=== PATIENT | female | born 1965 | race Caucasian/White ===

== ENCOUNTER → 2017-05-12 | Outpatient (CLI) | payer OTHER | LOC: FIMAGING 09:06 | PROVIDERS: ATTEND Internal Medicine Hematology & Oncology | DX: Z12.31 Encounter for screening mammogram for malignant neoplasm of breast (principal); Z80.3 Family history of malignant neoplasm of breast | CPT/HCPCS: G0202-52 ==

== ENCOUNTER 2018-05-10 20:15 | Inpatient (IN) | payer OTHER ==
--- NOTE | 2018-05-10 21:13 | EDPHY ---
General - History Smoking Status: Never smoked Time Seen by Provider: 05/10/18 20:50 Narrative: CHIEF COMPLAINT: Rib cage pain, groin pain HISTORY OF PRESENT ILLNESS: Patient presents to emergency department by private vehicle with her spouse with complaints of left rib pain and left groin pain. Pain has been present for over 2 weeks. She was doing exercises for left groin injury when she felt a sudden onset of pain in the muscles over her left side of her ribs. It has been constant duration. Moderate to severe at times, increasing severity over the past few days. Worse with inspiration and palpation. Also worse with movement at times. She has no shortness of breath, cough, fever or any chest pain. She has ongoing pain of the left groin as well. She has been evaluated only by physical therapist without physician evaluation or imaging. She has no extremity erythema edema or pain. She has been taking Advil 400 mg 3-4 times daily with some improvement. No history of venous thrombolic event. No other associated complaints or modifying factors. REVIEW OF SYSTEMS: 10 systems were reviewed and negative with the exception of the elements mentioned in the history of present illness. PCP: Dr. Chelsey Aburto SPECIALISTS: oncology, Dr. Sridevi Cherry PAST MEDICAL HISTORY: Ductal carcinoma in situ breast cancer. PAST SURGICAL HISTORY: Left mastectomy. SOCIAL HISTORY: Never smoker. Lives independently with her spouse. FAMILY HISTORY: Noncontributory EXAMINATION: Vitals: Triage VS reviewed General Appearance: Alert, no distress. Anxious. Well-appearing. Head: normocephalic, atraumatic Eyes: Pupils equal and round, no conjunctival pallor or injection ENT, Mouth: Mucous membranes moist Neck: Normal inspection, supple, non-tender Respiratory: Lungs are clear to auscultation. Tenderness palpation on the left anterior axillary line over the lower ribs. Cardiovascular: Regular rate and rhythm Gastrointestinal: Abdomen is soft and nontender Back: non-tender, no bony abnormalities Neurological: A&O, nonfocal, normal gait Skin: Warm and dry, no rash Extremities: Tenderness of the left greater trochanter left inguinal canal. There is no bony tenderness of the left ankle, heel, murphy, knee. Range of motion lower extremities symmetric painful in the left hip. All compartments are soft the left lower extremity. Psychiatric: Mood and affect normal DIFFERENTIAL DIAGNOSES: Including but not limited to costochondritis, muscular strain, muscular strain, PE, pneumonitis, pathologic fracture, metastasis, pneumonia, pleurisy, pericarditis, hemothorax, pleural effusion MDM: 8:50 p.m. Left-sided reproducible rib pain and left groin and hip pain of 2 weeks duration. Worsening over the past few days. Pain does seem to be reproducible but is somewhat pleuritic. Given her history of cancer and current use of tamoxifen, I discussed with Dr. Anderson, we will order D-dimer to rule out the possibility of PE. Patient's spouse are comfortable this plan. She is taking her own ibuprofen that she brought with her, 600 mg. She is taking her own Ativan that she brought with her, 1 mg by mouth. 9:55 p.m. Chest x-ray as read by me reveals fluid collection versus patchy infiltrate on left portion of the chest. 10:00 p.m. D-dimer is slightly elevated 0.53, thus I have ordered CT angiography of the chest. I have re-evaluated the patient she has consented to the scan. 10:05 p.m. Notified by radiologist Dr. Oglesby. There are patchy abnormalities of the chest bilaterally. I notified him that we will be obtaining a CT scan of the chest for further evaluation. 10:10 p.m. Notified by radiologist Dr. Oglesby. He notes some possible lytic lesions of the left proximal femur and possibly left acetabulum. Recommend CT scan for further evaluation at this time. 10:45 p.m. Notified by radiologist. CT scans of the chest and pelvis were discussed. There is no PE but there are extensive metastatic changes as documented. There is also a pathologic fracture of the left femoral neck. 11:13 p.m. Case discussed with Dr. Cleveland. he will admit the patient to his service. He request laboratory studies as I have ordered. I will also consult Orthopedics. 12:05 a.m. Orthopedic consultation pending. 12:15 a.m. The orthopedist has been reached in the operating room. They will return our call following the current case. 12:25 a.m. Case discussed with Dr. Hernandez. He will provide consultation. No surgical intervention emergently. SUPERVISION: Patient was independently examined, but I discussed the case with my secondary supervising physician Dr. Anderson CONSULTATION: Hospitalist admission, Dr. Cleveland Orthopedics pending with Dr. Hernandez. (Edvin Pringle) - Diagnostics Imaging Results: Imaging Impressions Chest X-Ray 05/10/18 21:13 Impression: 1. Bilateral mid and lower lobe interstitial opacities suggesting lymphangitic spread of tumor. 2. No pneumothorax. 3. Fracture of indeterminate age left 6th rib mid axillary line. Findings and recommendations discussed with Emergency Department Physician Olericulturist, Edvin Pringle PA-C, at 2209 hours, on May 10, 2018. Final report concurs with initial preliminary interpretation. Hip X-Ray 05/10/18 21:13 Impression: 1. Lytic lucencies involving the left acetabulum and proximal left femur, consistent with metastasis. 2. Left femoral neck fracture is only identified on the CT pelvis. Findings and recommendations discussed with Emergency Department physician, Edvin Pringle PA-C, at 2213 hours, on May 10, 2018. Final report concurs with initial preliminary interpretation. Chest/Thorax CTA 05/10/18 22:00 Impression: 1. Diffuse lytic osseous metastasis. 2. Bilateral diffuse lymphangitic spread of tumor. 3. No pulmonary embolus. Findings and recommendations discussed with Emergency Department physician, Edvin Pringle PAC at 22:40 hour, 05/10/2018. Final report concurs with initial preliminary interpretation. Pelvis CT 05/10/18 22:11 Impression: 1. Diffuse lytic osseous metastasis. 2. Pathologic fracture of the left femoral neck. 3. L5-S1 spondylolytic grade 1 spondylolisthesis. Findings and recommendations given to Edvin Pringle PAC at 22:50 hour, 2017. Final report concurs with initial preliminary interpretation. - Objective Vital Signs: Initial Vital Signs Temperature (C) 98.4 F 05/10/18 20:22 Heart Rate 83 05/10/18 20:22 Respiratory Rate 20 05/10/18 20:22 Blood Pressure 163/101 H 05/10/18 20:22 O2 Sat (%) 98 05/10/18 20:22 O2 Delivery Mode Room Air Allergies/Adverse Reactions: No Known Allergies Allergy (Unverified 05/10/18 20:20) Home Medications: Medication Instructions Recorded LORazepam [Ativan 0.5 mg (RX)] 0.5 mg PO DAILY 02/28/12 Tamoxifen Citrate 05/10/18 Laboratory Results: Laboratory Results 05/10/18 21:30 05/10/18 21:30 05/10/18 05/10/18 05/10/18 21:35 21:30 21:30 WBC 10.65 10^3/uL H 10^3/uL (3.80-9.50) RBC 4.21 10^6/uL 10^6/uL (4.18-5.33) Hgb 13.0 g/dL g/dL (12.6-16.3) POC Hgb 12.9 gm/dL gm/dL (12.6-16.3) Hct 36.6 % L % (38.0-47.0) POC Hct 38 % % (38-47) MCV 86.9 fL fL (81.5-99.8) MCH 30.9 pg pg (27.9-34.1) MCHC 35.5 g/dL g/dL (32.4-36.7) RDW 11.9 % % (11.5-15.2) Plt Count 374 10^3/uL 10^3/uL (150-400) MPV 9.5 fL fL (8.7-11.7) Neut % (Auto) 73.5 % % (39.3-74.2) Lymph % (Auto) 18.2 % % (15.0-45.0) [place] % (Auto) 6.8 % % (4.5-13.0) Eos % (Auto) 0.8 % % (0.6-7.6) Baso % (Auto) 0.4 % % (0.3-1.7) Nucleat RBC Rel Count 0.0 % % (0.0-0.2) Absolute Neuts (auto) 7.83 10^3/uL H 10^3/uL (1.70-6.50) Absolute Lymphs (auto) 1.94 10^3/uL 10^3/uL (1.00-3.00) Absolute Monos (auto) 0.72 10^3/uL 10^3/uL (0.30-0.80) Absolute Eos (auto) 0.09 10^3/uL 10^3/uL (0.03-0.40) Absolute Basos (auto) 0.04 10^3/uL 10^3/uL (0.02-0.10) Absolute Nucleated RBC 0.00 10^3/uL 10^3/uL (0-0.01) Immature Gran % 0.3 % % (0.0-1.1) Immature Gran # 0.03 10^3/uL 10^3/uL (0.00-0.10) PT INR APTT D-Dimer POC Sodium 143 mEq/L mEq/L (135-145) Sodium 139 mEq/L mEq/L (135-145) POC Potassium 3.4 mEq/L mEq/L (3.3-5.0) Potassium 3.7 mEq/L mEq/L (3.3-5.0) POC Chloride 110 mEq/L mEq/L (97-110) Chloride 107 mEq/L mEq/L (97-110) Carbon Dioxide 20 mEq/l L mEq/l (22-31) Anion Gap 12 mEq/L mEq/L (6-14) POC BUN 16 mg/dL mg/dL (7-23) BUN 17 mg/dL mg/dL (7-23) Creatinine 0.8 mg/dL mg/dL (0.6-1.0) POC Creatinine 0.8 mg/dL mg/dL (0.6-1.0) Estimated GFR > 60 Glucose 127 mg/dL H mg/dL (70-100) POC Glucose 132 mg/dL H mg/dL (70-100) Calcium 10.4 mg/dL mg/dL (8.5-10.4) Total Bilirubin 0.4 mg/dL mg/dL (0.1-1.4) Conjugated Bilirubin 0.2 mg/dL mg/dL (0.0-0.5) Unconjugated Bilirubin 0.2 mg/dL mg/dL (0.0-1.1) AST 45 IU/L IU/L (14-46) ALT 30 IU/L IU/L (9-52) Alkaline Phosphatase 86 IU/L IU/L (38-126) Total Protein 8.4 g/dL H g/dL (6.3-8.2) Albumin 4.9 g/dL g/dL (3.5-5.0) 05/10/18 21:30 WBC RBC Hgb POC Hgb Hct POC Hct MCV MCH MCHC RDW Plt Count MPV Neut % (Auto) Lymph % (Auto) [place] % (Auto) Eos % (Auto) Baso % (Auto) Nucleat RBC Rel Count Absolute Neuts (auto) Absolute Lymphs (auto) Absolute Monos (auto) Absolute Eos (auto) Absolute Basos (auto) Absolute Nucleated RBC Immature Gran % Immature Gran # PT 13.9 SEC SEC (12.0-15.0) INR 1.05 (0.83-1.16) APTT 28.1 SEC SEC (23.0-38.0) D-Dimer 0.53 ug/mLFEU H ug/mLFEU (0.00-0.50) POC Sodium Sodium POC Potassium Potassium POC Chloride Chloride Carbon Dioxide Anion Gap POC BUN BUN Creatinine POC Creatinine Estimated GFR Glucose POC Glucose Calcium Total Bilirubin Conjugated Bilirubin Unconjugated Bilirubin AST ALT Alkaline Phosphatase Total Protein Albumin Medications Given: Discontinued Medications Sodium Chloride (Ns) 1,000 mls @ 0 mls/hr IV EDNOW ONE; Wide Open PRN Reason: Protocol Stop: 05/10/18 22:02 Last Admin: 05/10/18 22:53 Dose: 1,000 mls Point of Care Test Results: Chemistry 05/10/18 21:35 POC Sodium 143 mEq/L mEq/L (135-145) POC Potassium 3.4 mEq/L mEq/L (3.3-5.0) POC Chloride 110 mEq/L mEq/L (97-110) POC BUN 16 mg/dL mg/dL (7-23) POC Creatinine 0.8 mg/dL mg/dL (0.6-1.0) POC Glucose 132 mg/dL H mg/dL (70-100) ISTAT H&H 05/10/18 21:35 POC Hgb 12.9 gm/dL gm/dL (12.6-16.3) POC Hct 38 % % (38-47) Departure - Departure Disposition: [facility] Inpatient Acute Clinical Impression: Mass of left lung, Mass of right lung Fracture of femoral neck, left, closed Qualifiers: Encounter type: initial encounter Qualified Code(s): S72.002A - Fracture of unspecified part of neck of left femur, initial encounter for closed fracture Condition: Fair
[2018-05-10] MEDS ORDERED: NS 1,000 ML IV ONE (22:01)
[2018-05-10] MEDS ORDERED: IOPAMIDOL (ISOVUE 370) 100 ML BTL IV ONE (22:03)
[2018-05-10] MEDS ORDERED: ONDANSETRON 4 MG/2 ML VIAL IVP PRN (23:08)
[2018-05-10] MEDS ORDERED: oxyCODONE IR 5 MG TAB PO PRN (23:08)
[2018-05-10] MEDS ORDERED: ONDANSETRON DISINTEGRATING 4 MG TAB PO PRN (23:08)
[2018-05-10] MEDS ORDERED: ACETAMINOPHEN 325 MG TAB PO PRN (23:08)
[2018-05-10 23:16] LABS: PLATELET COUNT 374 10^3/uL (150-400)
[2018-05-10 23:19] LABS: INR 1.05 (0.83-1.16); PROTIME(PATIENT) 13.9 SEC (12.0-15.0)
--- NOTE | 2018-05-11 00:44 | PDGENHP ---
History and Physical - Chief Complaint L hip pain, chest pain - History of Present Illness 52 yo F w/ hx of breast CA presents with L hip pain and chest pain. The patient has been having occasional musculoskeletal pains for several months. Over the last 3 weeks, L hip pain has led to difficulty ambulating. Over the last few days she has also been noticing anterior chest wall pain. She presented to the ED today for evaluation. In the ED CT scans were notable for diffuse osseous metastases including a possible pathologic fracture of the L femoral neck. She was initially diagnosed with DCIS in 2008 and treated with lumpectomy and radiation at that time. She had Stage I disease recurrence in 2011 and was treated with mastectomy and chemotherapy. She has been on Tamoxifen since. She followed with Dr. Sridevi Cherry. Case discussed with ED physician Dr. Arroyo; records reviewed and summarized above. History Information - Allergies/Home Medication List Allergies/Adverse Reactions: No Known Allergies Allergy (Unverified 05/10/18 20:20) Home Medications: LORazepam [Ativan 0.5 mg (RX)] 0.5 mg PO DAILY 02/28/12 [Last Taken Unknown] Tamoxifen Citrate 05/10/18 [Last Taken Unknown] I have personally reviewed and updated: family history, medical history - Past Medical History cancer - Surgical History Reports: cancer surgery (Lumpectomy 2008, mastectomy 2011) - Family History Negative for: cancer - Social History Smoking Status: Never smoked Review of Systems Review of Systems: ROS: 10pt was reviewed & negative except for what was stated in HPI & below Physical Exam Physical Exam: Temp Pulse Resp BP Pulse Ox 36.9 C 64 16 128/75 H 95 05/10/18 20:22 05/10/18 22:56 05/10/18 22:56 05/10/18 22:56 05/10/18 22:56 Constitutional: no apparent distress, appears nourished Eyes: PERRL, EOMI Ears, Nose, Mouth, Throat: moist mucous membranes, no oral mucosal ulcers Cardiovascular: regular rate and rhythym, no murmur, rub, or gallop Respiratory: no respiratory distress, clear to auscultation Gastrointestinal: normoactive bowel sounds, soft, non-tender abdomen Skin: warm, normal color Musculoskeletal: full muscle strength, pain with ROM (L hip) Neurologic: AAOx3, CN II-XII Intact Psychiatric: interacting appropriately, anxious Lab Data & Imaging Review 05/10/18 21:30 05/10/18 21:30 WBC 10.65 10^3/uL (3.80-9.50) H 05/10/18 21: RBC 4.21 10^6/uL (4.18-5.33) 05/10/18 21:30 Hgb 13.0 g/dL (12.6-16.3) 05/10/18 21: POC Hgb 12.9 gm/dL (12.6-16.3) 05/10/18 21: Hct 36.6 % (38.0-47.0) L 05/10/18 21: POC Hct 38 % (38-47) 05/10/18 21: MCV 86.9 fL (81.5-99.8) 05/10/18 21: MCH 30.9 pg (27.9-34.1) 05/10/18 21: MCHC 35.5 g/dL (32.4-36.7) 05/10/18 21: RDW 11.9 % (11.5-15.2) 05/10/18 21: Plt Count 374 10^3/uL (150-400) 05/10/18 21: MPV 9.5 fL (8.7-11.7) 05/10/18 21: Neut % (Auto) 73.5 % (39.3-74.2) 05/10/18 21: Lymph % (Auto) 18.2 % (15.0-45.0) 05/10/18 21: [place] % (Auto) 6.8 % (4.5-13.0) 05/10/18 21: Eos % (Auto) 0.8 % (0.6-7.6) 05/10/18 21: Baso % (Auto) 0.4 % (0.3-1.7) 05/10/18: Nucleat RBC Rel Count 0.0 % (0.0-0.2) 05/10/18 21: Absolute Neuts (auto) 7.83 10^3/uL (1.70-6.50) H 05/10/18 21:30 Absolute Lymphs (auto) 1.94 10^3/uL (1.00-3.00) 05/10/18 21:30 Absolute Monos (auto) 0.72 10^3/uL (0.30-0.80) 05/10/18 21:30 Absolute Eos (auto) 0.09 10^3/uL (0.03-0.40) 05/10/18 21:30 Absolute Basos (auto) 0.04 10^3/uL (0.02-0.10) 05/10/18 21:30 Absolute Nucleated RBC 0.00 10^3/uL (0-0.01) 05/10/18 21: Immature Gran % 0.3 % (0.0-1.1) 05/10/18 21: Immature Gran # 0.03 10^3/uL (0.00-0.10) 05/10/18 21:30 PT 13.9 SEC (12.0-15.0) 05/10/18 21:30 INR 1.05 (0.83-1.16) 05/10/18 21:30 APTT 28.1 SEC (23.0-38.0) 05/10/18 21:30 D-Dimer 0.53 ug/mLFEU (0.00-0.50) H 05/10/18 21:30 POC Sodium 143 mEq/L (135-145) 05/10/18 21:35 Sodium 139 mEq/L (135-145) 05/10/18 21:30 POC Potassium 3.4 mEq/L (3.3-5.0) 05/10/18 21:35 Potassium 3.7 mEq/L (3.3-5.0) 05/10/18 21:30 POC Chloride 110 mEq/L (97-110) 05/10/18 21:35 Chloride 107 mEq/L (97-110) 05/10/18 21:30 Carbon Dioxide 20 mEq/l (22-31) L 05/10/18 21:30 Anion Gap 12 mEq/L (6-14) 05/10/18 21:30 POC BUN 16 mg/dL (7-23) 05/10/18 21:35 BUN 17 mg/dL (7-23) 05/10/18 21:30 Creatinine 0.8 mg/dL (0.6-1.0) 05/10/18 21:30 POC Creatinine 0.8 mg/dL (0.6-1.0) 05/10/18 21:35 Estimated GFR > 60 05/10/18 21:30 Glucose 127 mg/dL (70-100) H 05/10/18 21:30 POC Glucose 132 mg/dL (70-100) H 05/10/18 21:35 Calcium 10.4 mg/dL (8.5-10.4) 05/10/18 21:30 Total Bilirubin 0.4 mg/dL (0.1-1.4) 05/10/18 21:30 Conjugated Bilirubin 0.2 mg/dL (0.0-0.5) 05/10/18 21:30 Unconjugated Bilirubin 0.2 mg/dL (0.0-1.1) 05/10/18 21:30 AST 45 IU/L (14-46) 05/10/18 21:30 ALT 30 IU/L (9-52) 05/10/18 21:30 Alkaline Phosphatase 86 IU/L (38-126) 05/10/18 21:30 Total Protein 8.4 g/dL (6.3-8.2) H 05/10/18 21:30 Albumin 4.9 g/dL (3.5-5.0) 05/10/18 21:30 Imaging Review: Imaging Impressions Chest X-Ray 05/10/18 21:13 Impression: 1. Bilateral mid and lower lobe interstitial opacities suggesting lymphangitic spread of tumor. 2. No pneumothorax. 3. Fracture of indeterminate age left 6th rib mid axillary line. Findings and recommendations discussed with Emergency Department Physician Handyman, Edvin Pringle PA-C, at 2209 hours, on May 10, 2018. Final report concurs with initial preliminary interpretation. Hip X-Ray 05/10/18 21:13 Impression: 1. Lytic lucencies involving the left acetabulum and proximal left femur, consistent with metastasis. 2. Left femoral neck fracture is only identified on the CT pelvis. Findings and recommendations discussed with Emergency Department physician, Edvin Pringle PA-C, at 2213 hours, on May 10, 2018. Final report concurs with initial preliminary interpretation. Chest/Thorax CTA 05/10/18 22:00 Impression: 1. Diffuse lytic osseous metastasis. 2. Bilateral diffuse lymphangitic spread of tumor. 3. No pulmonary embolus. Findings and recommendations discussed with Emergency Department physician, Edvin rPingle PAC at 22:40 hour, 05/10/2018. Final report concurs with initial preliminary interpretation. Pelvis CT 05/10/18 22:11 Impression: 1. Diffuse lytic osseous metastasis. 2. Pathologic fracture of the left femoral neck. 3. L5-S1 spondylolytic grade 1 spondylolisthesis. Findings and recommendations given to Edvin Pringle PAC at 22:50 hour, 2017. Final report concurs with initial preliminary interpretation. Assessment & Plan Assessment: 52 yo F w/ hx of breast CA presents with L hip pain and found to have widespread metastases and pathologic L hip fracture. Plan: 1. Breast CA, recurrent - Presented with various MSK complaints; imaging revealed widespread osseous metastases and likely lymphangitic spread in the lungs. She was initially diagnosed with DCIS in 2008 and treated with lumpectomy and radiation. She had Stage I disease recurrence in 2011 treated with mastectomy and chemotherapy. She follows with Dr. Sridevi Cherry. - Admit for observation - Oncology consult in the morning - Morphine PRN for pain control, Ativan PRN for anxiety - May benefit from palliative involvement as well 2. Pathologic L femoral neck fracture, acute - L hip pain was her presenting symptom. This will likely be a complex situation noting the extent of malignant involvement. - Orthopedic surgery (Dr. Hernandez) consulted - Will maintain NPO pending surgical evaluation Diet - NPO pending surgical evaluation Code - Full Ppx - SCDs pending surgical evaluation, high risk for VTE so would commence LMWH afterwards Dispo - Admit under observation status
[2018-05-11] MEDS: D5W 1/2 NS W/ 20 KCl/L 1,000 ML IV SCH ×2 (00:58→10:29)
[2018-05-11] MEDS: LORazepam 1 MG TAB PO PRN ×4 (01:51→20:43)
[2018-05-11 06:20] LABS: PLATELET COUNT 323 10^3/uL (150-400)
[2018-05-11] MEDS: IBUPROFEN 600 MG TAB PO PRN ×2 (08:14→14:15)
--- NOTE | 2018-05-11 08:16 | GCON ---
DATE OF CONSULTATION: 05/10/2018 REASON FOR CONSULTATION: Left hip pain. HISTORY RELATIVE TO CONSULTATION: The patient is a 52-year-old with a history of breast CA who has h ad a progressive onset of left hip pain over the last 6 months. She was just on a prolonged internat ional vacation that involved lots of walking and has had exacerbation of her symptoms over the last c ouple of weeks. Her pain is currently limiting her from doing some walking. She started using a can e for ambulation. PHYSICAL EXAMINATION: MUSCULOSKELETAL: There is no focal deformity with her hip. Her leg lengths ar e symmetric with symmetrical rotation. Gentle hip flexion and extension does not produce any signifi cant pain but with more loaded motion, pain is reproduced in the groin. IMAGING DATA: The images including AP radiographs of her hip and CT scan were reviewed. There is ex tensive metastatic disease throughout her pelvis, spine, and femur. Most notably in the left femoral head, there is a large lytic lesion which appears to extend out the periphery of the head. ASSESSMENT: Left pathologic femoral head fracture. PLAN: Based on the extensive nature of the lesion in her femoral head, from a treatment standpoint, a total hip arthroplasty is the likely preferable option. Based on her extensive metastatic disease, it was recommended that she be managed by an orthopedic oncologist. She was given contact informati on for Dr. Storm Vidal at the [facility] and will call tomorrow to set up an appoint ment. She will continue crutch ambulation and may be discharged when her pain level allows. /[id number]/MODL
--- NOTE | 2018-05-11 15:30 | GCON ---
NEW PATIENT CONSULTATION. REFERRING PHYSICIAN: Erick Lorenzo DO PRIMARY ONCOLOGIST: Sridevi Cherry MD REASON FOR CONSULTATION: Patient admitted for left hip pain, found to have diffuse osseous metastatic disease. 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 She was 43 at that time. DCIS was grade 2, ER ND positive. She underwent lumpectomy followed by postlumpectomy radiation therapy. She then had an ipsilateral recurrence of stage IA or T1c N0 M0 invasive ductal carcinoma in January of 2012. Tumor was grade 2 with lymphovascular invasion. ER was positive and ND was negative. HER-2 was negative. Oncotype recurrence score was high at 34. She received 6 cycles of adjuvant TC and started on tamoxifen in September 2012 and has been on the drug since that time. She did have a mastectomy with implant reconstruction. 0/3 lymph nodes were involved. She was tested for BRCA and was negative. The last time she saw Dr. Sridevi Cherry was in November of 2017 and she was on tamoxifen at that time and remained amenorrheic. She was complaining of aggravation of left chest wall during exercise and was having more pain on that side. Denied any new side effects from tamoxifen. Denied any other bone pain, chest pain, shortness of breath or cough. Yesterday, the patient presented to the ER with left hip pain and chest pain. She reported occasional musculoskeletal pains for several months and over the last 3 weeks, left pain has led to difficulty ambulating. CT scans are notable for diffuse osseous metastatic disease including a pathologic fracture of left femoral neck. Her chest x-ray in the emergency room suggested bilateral mid and lower lobe interstitial opacities. No pneumothorax, fracture, age indeterminate left 6th rib, mid axillary line. She had a hip x-ray of the left showing lytic lucency involving left acetabulum and proximal left femur, the fracture was not identified on that scan. She had a pelvic CT that showed diffuse lytic osseous metastasis, pathologic fracture of left femoral neck, L5 through S1 spondylitic grade 1 spondylolisthesis. She is currently receiving p.r.n. oxycodone and morphine sulfate and her pain is much improved. Labs have been essentially unremarkable. PAST MEDICAL HISTORY: Breast cancer, details as above. SURGICAL HISTORY: Lumpectomy 2008, mastectomy 2011. FAMILY HISTORY: Negative for cancer. REVIEW OF SYSTEMS: Denies occasional shortness of breath, but thought this was due to over exertion on left hip. She does have some left-sided rib pain. Denies any headache, visual changes, any bowel or bladder incontinence, any nausea, vomiting, any abdominal bloating. PHYSICAL EXAM: VITAL SIGNS: Today, blood pressure 123/82, heart rate 69, respiratory rate 14, saturating 97% on room air, temp is 36.6. GENERAL: She is a very pleasant 52-year-old woman looks her stated age, not in acute distress but fatigued. HEENT: Anicteric. Oropharynx is clear. HEART: Regular rate and rhythm. LUNGS: Clear to auscultation anteriorly. ABDOMEN: She had tenderness over left lower rib cage. No enlarged liver on my exam. No obvious ascites. EXTREMITIES: Lower extremities no significant edema. NEUROLOGIC: Nonfocal. Left leg is somewhat limited by motion due to pain. LABORATORY DATA: Today, white blood cell count 7.3, hemoglobin 12.3, hematocrit 35, platelet count 323,000. CMP shows a normal calcium at 9.8, her albumin is also normal at 4.9, creatinine 0.8. Electrolytes are otherwise normal. Imaging per report above. ASSESSMENT AND PLAN: This is a very pleasant, yet unfortunate 52-year-old woman who appears to have diffuse metastatic disease involving the bone and lung at this time. The most likely culprit would be underlying breast cancer, although this has not been confirmed. Unfortunately, she has left hip pain from the left pathologic femoral head fracture. 1. Femoral head fracture and diffuse osseous metastatic disease. Appreciate Orthopedics. Due to extensive nature of lesion in her femoral head which I have reviewed myself, total hip arthroplasty would be the preferable option. Discussed with Dr. Eliud Sofia at [facility]. Dr. Sofia thinks it would be a very difficult surgery and may not be technically feasible. If any attempt was made, it would be a significant undertaking fraught with complications of wound infection, possibly non healing given the amount of cancer involvement. We briefly talked about the option of a girdle stone procedure which would remove the femoral head from the femoral neck, allowing her some pain relief. However, pain is really relatively controlled today and she is able to touch down on the left and use a walker. Dr. Sofia and I discussed the option of radiating for pain and hopefully she is able to reconstitute some of her bone and at that point, we could reassess and see if surgery would be less invasive and more likely to be successful. If we divert surgery at this time, she could start on systemic therapy and I do favor this approach given the potential morbidity of a large surgery. I would anticipate we would want to start her on aromatase inhibitor with CK 4/6 inhibition as well as zoledronic acid. Dr. Eliud Sofia would see her in outpatient. He has requested a plain film of the pelvis to be able to follow this over time. Again , pain is currently controlled. She will work with PT today and see what her functionality is. 2. Metastatic cancer, [place] breast [place] 2729 drawn today, would like to get a tissue biopsy, soft tissue preferred. I am not seeing any lesions amenable to biopsy. Getting a CT abdomen to rule out metastatic disease. Again , if this is her hormone positive breast cancer would favor aromatase inhibitor plus CK 4/6 inhibition up front given the response rates that are actually better than chemo and the progression free survival based on multiple trials now. (MONARCH, TORO, etc) 3. Pain currently controlled on regimen. Will need outpatient oral medications. I did consult Dr. Dontae Mckeon with Radiation Oncology to see the patient in house. More than an hour was spent with patient, family and multi-disciplinary teams discussing management and going over imaging. /[id number]/MODL MTDD
[2018-05-11] MEDS ORDERED: IOPAMIDOL (ISOVUE-300) 100 ML BTL ONE (15:40)
--- NOTE | 2018-05-11 16:15 | HOSPPROG ---
Hospitalist Progress Note Assessment/Plan: 52 yo F w/ hx of breast CA presents with L hip pain and found to have widespread metastases and pathologic L hip fracture. Plan: 1. Breast CA, recurrent - Presented with various MSK complaints; imaging revealed widespread osseous metastases and likely lymphangitic spread in the lungs. She was initially diagnosed with DCIS in 2008 and treated with lumpectomy and radiation. She had Stage I disease recurrence in 2011 treated with mastectomy and chemotherapy. She follows with Dr. Sridevi Cherry. - Oncology consulted and following - Morphine PRN for pain control, Ativan PRN for anxiety 2. Pathologic L femoral neck fracture, acute - L hip pain was her presenting symptom. This will likely be a complex situation noting the extent of malignant involvement. - Orthopedic surgery (Dr. Hernandez) consulted who recommends Orthopaedic Oncology consult - Dr. Bee of Oncology spoke with Dr. Sofia, Orthopaedic Oncologist at , who recommends pain control and seeing how mobile patient is, if she is unable to mobilize or has intractable pain he recommends transfer to for further evaluation, however he believes patient would likely require total hip replacement and with her cancer burden he believes the morbidity from the procedure would be high - Pain control as above Diet - Regular Code - Full Ppx - SCDs pending surgical evaluation, high risk for VTE so would commence LMWH afterwards Dispo - Pending clinical course Objective: Vital Signs Temp Pulse Resp BP Pulse Ox 36.5 C 79 14 115/72 96 05/11/18 15:26 05/11/18 15:26 05/11/18 15:26 05/11/18 15:26 05/11/18 15:26 Laboratory Results 05/11/18 05:35 05/11/18 05:35 05/10/18 05/11/18 05/12/18 05:59 05:59 05:59 Intake Total 452 950 Output Total 1450 Balance 452 -500 PT 13.9 SEC (12.0-15.0) 05/10/18 21:30 INR 1.05 (0.83-1.16) 05/10/18 21:30 - Physical Exam Constitutional: no apparent distress Eyes: PERRL Ears, Nose, Mouth, Throat: moist mucous membranes Cardiovascular: regular rate and rhythym Respiratory: no respiratory distress Gastrointestinal: soft, non-tender abdomen Skin: warm Musculoskeletal: pain with ROM Neurologic: AAOx3 Psychiatric: interacting appropriately ICD10 Worksheet Patient Problems: Problems Problem Status Onset Fracture of femoral neck, left, closed Acute Mass of left lung Acute Mass of right lung Acute
--- NOTE | 2018-05-11 17:06 | ASMTCMCOM ---
CM Note CM Note Notes: Pt is single and has boyfriend Roel and sister Deena who are supportive. Chart reviewed in rounds. Pt admitted for femoral fracture due to extensive metastatic Breast CA after several years of remission and double mastectomy in 2011. Oncologist is recommending pt to orthopedic oncologist at [facility], however extent of disease would make recovery from surgery grim. Plan is now to manage pain and mobilize pt but if this is not possible, transfer her to [facility] for further evaluation. Eliza Savage, navigator called to consult with pt. Therapies have yet to evaluate. Discharge plan TBD. Date Signed: 05/11/2018 05:05 PM Electronically Signed By:Angelika Robles
--- NOTE | 2018-05-11 17:06 | PDMN ---
Medical Necessity Medical necessity: MCG: [facility] Oncology HX of Br. Ca with new Dg diffuse osseous metastatic disease- new pathologic fx of hip with major instability - pt with ortho consults , onc consult, PT, OT, ongoing monitoring, eval and tx status changed to INPT 05/11/19
[2018-05-12] MEDS: LORazepam 1 MG TAB PO PRN ×4 (02:53→21:39)
[2018-05-12] MEDS: IBUPROFEN 600 MG TAB PO PRN ×4 (03:18→21:39)
--- NOTE | 2018-05-12 15:22 | HOSPPROG ---
Hospitalist Progress Note Assessment/Plan: 52 yo F w/ hx of breast CA presents with L hip pain and found to have widespread metastases and pathologic L hip fracture. Plan: 1. Breast CA, recurrent - Presented with various MSK complaints; imaging revealed widespread osseous metastases and likely lymphangitic spread in the lungs. She was initially diagnosed with DCIS in 2008 and treated with lumpectomy and radiation. She had Stage I disease recurrence in 2011 treated with mastectomy and chemotherapy. She follows with Dr. Sridevi Cherry. - Oncology consulted and following - Morphine PRN for pain control, Ativan PRN for anxiety - Abd CT shows liver, lungs, thoracolumbar metastasis - Oncology recommending tissue biopsy, considering Liver Lesion biopsy, will make NPO at midnight 2. Pathologic L femoral neck fracture, acute - L hip pain was her presenting symptom. This will likely be a complex situation noting the extent of malignant involvement. - Orthopedic surgery (Dr. Hernandez) consulted who recommends Orthopaedic Oncology consult - Dr. Bee of Oncology spoke with Dr. Sofia, Orthopaedic Oncologist at , who recommends pain control and seeing how mobile patient is, if she is unable to mobilize or has intractable pain he recommends transfer to for further evaluation, however he believes patient would likely require total hip replacement and with her cancer burden he believes the morbidity from the procedure would be high - Pain control as above Diet - Regular Code - Full Ppx - SCDs pending surgical evaluation, high risk for VTE so would commence LMWH afterwards Dispo - Pending clinical course, likely d/c tomorrow Subjective: Patient reports some pain in LLE today Objective: Vital Signs Temp Pulse Resp BP Pulse Ox 37.1 C 98 16 125/74 H 97 05/12/18 14:35 05/12/18 14:35 05/12/18 14:35 05/12/18 14:35 05/12/18 14:35 05/11/18 05/12/18 05/13/18 05:59 05:59 05:59 Intake Total 2537 565 Output Total 2300 1300 Balance 237 -735 PT 13.9 SEC (12.0-15.0) 05/10/18 21:30 INR 1.05 (0.83-1.16) 05/10/18 21:30 - Physical Exam Constitutional: uncomfortable Eyes: PERRL Ears, Nose, Mouth, Throat: moist mucous membranes Cardiovascular: regular rate and rhythym Respiratory: no respiratory distress Gastrointestinal: soft, non-tender abdomen Genitourinary: No daniel in urethra Musculoskeletal: pain with ROM Neurologic: AAOx3 Psychiatric: interacting appropriately ICD10 Worksheet Patient Problems: Problems Problem Status Onset Fracture of femoral neck, left, closed Acute Mass of left lung Acute Mass of right lung Acute
--- NOTE | 2018-05-12 16:28 | ASMTCMCOM ---
CM Note CM Note Notes: Pt admitted for metastatic cancer to bone with femur fracture. PT and OT recommending home care. Palliative eval orders placed today at end of day. Pt agreeable to home therapy through [facility] and they are able to accept. CM also mentioned that palliative orders had been placed and pt became tearful. CM did some appropriate education on the function of palliative care and told pt that call center support representative would be available to chat with her over the weekend about what palliative care is and how it may be helpful and what agencies are available. Family and friends were in the room and expressed overwhelm at number of decisions to be made. CM explained that decisions regarding support were only needed in the timing that was comfortable for the pt, and that the lone lead lineman was a great resource when they were ready. It may be appropriate for call center support representative to touch base with pt over the weekend still for support and listening. D/C Plan: Home with [facility] PT/OT Date Signed: 05/12/2018 04:27 PM Electronically Signed By:Angelika Robles
--- NOTE | 2018-05-12 17:00 | SOAPPROG ---
SOAP Progress Note Assessment/Plan: Assessment/Plan: 52 woman w hx of T1cN0 ER+SC-HER2 neg breast cancer in 2012 s/ p L mastectomy and SLNB This was followed by TC x 6 and she has been on tamoxifen since that time She presented w L hip pain discovered to have femoral neck fracture w diffuse osseous metastatic disease, presumably metastatic breast ca 1. L fem neck fracture - not amenable to surgery at this time given extensive lytic lesions D/W DR Sofia at [facility] - would requite total hip arthroplasty which could be quite morbid for her and no guarantee of helping; would like to hold off on surgery at this time so we can get system therapy started Pain controlled very well and can ambulate w walker pelvic plain film complete - will need to see DR Sofia as outpt as a means to achieve some bone reconstitution, consulted RadOnc - was simulated and given high fraction today (thnk one treatment only planned but did not see Dr Mckeon's note) Can probably safely get Zometa tomorrow prior to discharge PT/OT 2. Diffuse metastatic dz - mets to lungs (lymphangitic spread?), liver (3 mets) and skeleton soft tissue dx recommended for definitive path and molecular testing Have requested CT guided IR bx for tomorrow CA 27-29 pending If ER+ breast cancer, treatment of choice would be first line AI or fulvestrant w Ck4/6 inhibitor + bisphosphonate Gave her re-assurance today 3. Pain - home w oxycodone more than 45 min spent w pt and family 05/12/18 17:01 Subjective: No acute events XRT today Pain controlled Objective: Vital Signs Temp Pulse Resp BP Pulse Ox 37.1 C 98 16 125/74 H 97 05/12/18 14:35 05/12/18 14:35 05/12/18 14:35 05/12/18 14:35 05/12/18 14:35 05/11/18 05/12/18 05/13/18 05:59 05:59 05:59 Intake Total 3867 565 Output Total 2300 2250 Balance 237 -1685 PT 13.9 SEC (12.0-15.0) 05/10/18 21:30 INR 1.05 (0.83-1.16) 05/10/18 21:30 Sitting in chair Not examined today ICD10 Worksheet Patient Problems: Problems Problem Status Onset Fracture of femoral neck, left, closed Acute Mass of left lung Acute Mass of right lung Acute
[2018-05-13] MEDS: IBUPROFEN 600 MG TAB PO PRN ×3 (06:20→17:49)
[2018-05-13] MEDS: LORazepam 1 MG TAB PO PRN ×4 (06:23→21:36)
--- NOTE | 2018-05-13 11:28 | SOAPPROG ---
SOAP Progress Note Assessment/Plan: Assessment: SOAP Progress Note Assessment/Plan: Assessment/Plan: 52 woman w hx of T1cN0 ER+KS-HER2 neg breast cancer in 2012 s/ p L mastectomy and SLNB This was followed by TC x 6 and she has been on tamoxifen since that time She presented w L hip pain discovered to have femoral neck fracture w diffuse osseous metastatic disease, presumably metastatic breast ca 1. L fem neck fracture - not amenable to surgery at this time given extensive lytic lesions Pain controlled. Can ambulate w walker (non weight bearing) will need to see DR Sofia as outpt Was simulated and given one high fraction yesterday per Dr. Mckeon. Zometa today. PT/OT 2. Diffuse metastatic dz - mets to lungs (lymphangitic spread?), liver (3 mets) and skeleton soft tissue dx recommended for definitive path and molecular testing CT guided IR bx of liver lesion. CA 27-29 elevated consistent with metastatic breast cancer. If ER+ breast cancer, treatment of choice would be first line AI or fulvestrant w Ck4/6 inhibitor + bisphosphonate. 3. Pain - home w oxycodone Subjective: comfortable, intermittently tearful Objective: Vital Signs Temp Pulse Resp BP Pulse Ox 36.9 C 68 14 130/77 H 95 05/13/18 11:09 05/13/18 11:05/13/18 11:05/13/18 11:05/13/18 11:05/12/18 05/13/18 05/14/18 05:59 05:59 05:59 Intake Total 2537 3205 Output Total 2300 4500 Balance 237 -1295 PT 13.9 SEC (12.0-15.0) 05/10/18 21:30 INR 1.05 (0.83-1.16) 05/10/18 21:30 Physical Exam - Physical Exam General Appearance: no apparent distress ICD10 Worksheet Patient Problems: Problems Problem Status Onset Fracture of femoral neck, left, closed Acute Mass of left lung Acute Mass of right lung Acute
[2018-05-13] MEDS ORDERED: ZOLEDRONIC ACID 4 MG in D5W 100 ML IV ONE (11:29)
[2018-05-13] MEDS: D5W 1/2 NS W/ 20 KCl/L 1,000 ML IV SCH (12:10)
--- NOTE | 2018-05-13 13:11 | HOSPPROG ---
Hospitalist Progress Note Assessment/Plan: 52 yo F w/ hx of breast CA presents with L hip pain and found to have widespread metastases and pathologic L hip fracture. Plan: 1. Breast CA, recurrent - Presented with various MSK complaints; imaging revealed widespread osseous metastases and likely lymphangitic spread in the lungs. She was initially diagnosed with DCIS in 2008 and treated with lumpectomy and radiation. She had Stage I disease recurrence in 2011 treated with mastectomy and chemotherapy. She follows with Dr. Sridevi Cherry. - Oncology consulted and following - Morphine PRN for pain control, Ativan PRN for anxiety - Abd CT shows liver, lungs, thoracolumbar metastasis - Oncology recommending liver lesion biopsy, ordered for today but unable to be done per IR, will either perform as IP vs. OP on Tuesday 2. Pathologic L femoral neck fracture, acute - L hip pain was her presenting symptom. This will likely be a complex situation noting the extent of malignant involvement. - Orthopedic surgery (Dr. Hernandez) consulted who recommends Orthopaedic Oncology consult, patient to f/u with Dr. Sofia, Orthopaedic Oncologist at , with repeat imaging as an outpatient - Pain control as above Diet - Regular Code - Full Ppx - SCDs pending surgical evaluation, high risk for VTE so would commence LMWH afterwards Dispo - Pending clinical course Subjective: Patient reports mild pain in LLE this AM Objective: Vital Signs Temp Pulse Resp BP Pulse Ox 36.9 C 68 14 130/77 H 95 05/13/18 11:09 05/13/18 11:09 05/13/18 11:09 05/13/18 11:09 05/13/18 11:09 05/12/18 05/13/18 05/14/18 05:59 05:59 05:59 Intake Total 2537 3205 Output Total 2300 4500 Balance 237 -1295 PT 13.9 SEC (12.0-15.0) 05/10/18 21:30 INR 1.05 (0.83-1.16) 05/10/18 21:30 - Physical Exam Constitutional: no apparent distress Eyes: PERRL Ears, Nose, Mouth, Throat: moist mucous membranes Cardiovascular: No edema Respiratory: no respiratory distress Gastrointestinal: No distension Musculoskeletal: pain with ROM Neurologic: AAOx3 Psychiatric: interacting appropriately ICD10 Worksheet Patient Problems: Problems Problem Status Onset Fracture of femoral neck, left, closed Acute Mass of left lung Acute Mass of right lung Acute
[2018-05-14] MEDS: LORazepam 1 MG TAB PO PRN ×3 (01:40→10:14)
[2018-05-14] MEDS: D5W 1/2 NS W/ 20 KCl/L 1,000 ML IV SCH (05:25)
--- NOTE | 2018-05-14 10:11 | SOAPPROG ---
SOAP Progress Note Assessment/Plan: Assessment: SOAP Progress Note Assessment/Plan: Assessment/Plan: 52 woman w hx of T1cN0 ER+CT-HER2 neg breast cancer in 2012 s/ p L mastectomy and SLNB This was followed by TC x 6 and she has been on tamoxifen since that time She presented w L hip pain discovered to have femoral neck fracture w diffuse osseous metastatic disease, presumably metastatic breast ca 1. L fem neck fracture - not amenable to surgery at this time given extensive lytic lesions Pain controlled. Can ambulate w walker (non weight bearing) will need to see DR Sofia as outpt Was simulated and given one high fraction on Tuesday by Dr. Mckeon. 2. Left rib pain-films reviewed with Dr. lopez. Has bone mets in lateral 8, 10 , 11 ribs. Suspect radiation would be of benefit. Will discuss with Dr. Mckeon. 2. Diffuse metastatic dz - mets to lungs (lymphangitic spread?), liver (3 mets) and skeleton soft tissue dx recommended for definitive path and molecular testing. Reviewed CT scans today with Dr. Lopez. Liver biopsy is challenging, lesion in the dome of the liver. Easily accessible lesion in left ileum with prominent soft tissue component. Preference is to obtain soft tissue sample (as opposed to bone ) due to potential issues with false neg results on immunostains with the decalcification process. Will discuss with pathology. Will send for foundation testing, along with ER, CT and Her2. Received Zometa on 05/13. Treatment will likely be antiestrogen therapy with CDK inhibitor. Chemotherapy would be a consideration if lung disease proves to be lymphangitic and has progressive resp compromise. Will get brain MRI today, PET as an outpatient. Lupron tomorrow , anticipating probable antiestrogen approach. 3. Low grade fever last night-unclear source. Can sometimes see after zometa. CXR with increased markings suggestive of viral/atypical pneumonitis. Will hold on antibiotics for now. patient cultured. 4. ? Lymphangitic disease-CT/CXR's reviewed with Dr. Lopez. He favors more viral process. Difficult to know for sure. Not hypoxic. Will monitor for now. 05/14/18 10:11 Subjective: left ribs are painful. Limits movement. Appropriately intermittently tearful Objective: Vital Signs Temp Pulse Resp BP Pulse Ox 36.8 C 93 14 109/66 92 05/14/18 08:00 05/14/18 08:00 05/14/18 08:00 05/14/18 08:00 05/14/18 08:00 Laboratory Results 05/14/18 05:51 05/13/18 05/14/18 05/15/18 05:59 05:59 05:59 Intake Total 3205 1550 Output Total 4500 1700 Balance -1295 -150 PT 13.9 SEC (12.0-15.0) 05/10/18 21:30 INR 1.05 (0.83-1.16) 05/10/18 21:30 Physical Exam - Physical Exam General Appearance: alert, mild distress Respiratory: lungs clear Abdomen: non-tender, soft Lymphatic: no adenopathy Neuro/Psych: alert ICD10 Worksheet Patient Problems: Problems Problem Status Onset Fracture of femoral neck, left, closed Acute Mass of left lung Acute Mass of right lung Acute
[2018-05-14] MEDS: IBUPROFEN 600 MG TAB PO PRN ×2 (10:14→18:33)
[2018-05-14] MEDS ORDERED: ENOXAPARIN 40 MG/0.4 ML SYR SC SCH (10:15)
[2018-05-14] MEDS ORDERED: LORazepam 2 MG/ML INJ IVP ONE (11:46)
[2018-05-14] MEDS ORDERED: GADOBUTROL 10 ML VIAL IVP ONE (12:08)
--- NOTE | 2018-05-14 13:02 | HOSPPROG ---
Hospitalist Progress Note Assessment/Plan: 52 yo F w/ hx of breast CA presents with L hip pain and found to have widespread metastases and pathologic L hip fracture. Plan: 1. Breast CA, recurrent - Presented with various MSK complaints; imaging revealed widespread osseous metastases and likely lymphangitic spread in the lungs. She was initially diagnosed with DCIS in 2008 and treated with lumpectomy and radiation. She had Stage I disease recurrence in 2011 treated with mastectomy and chemotherapy. She follows with Dr. Sridevi Cherry. - Oncology consulted and following - Morphine PRN for pain control, Ativan PRN for anxiety - Abd CT shows liver, lungs, thoracolumbar metastasis - MRI Brain ordered for today - Bone biopsy of L ilium ordered for tomorrow for tissue diagnosis per Onc - Lupron planned for tomorrow - PET as an outpatient 2. Pathologic L femoral neck fracture, acute - L hip pain was her presenting symptom. This will likely be a complex situation noting the extent of malignant involvement. - Orthopedic surgery (Dr. Hernandez) consulted who recommends Orthopaedic Oncology consult, patient to f/u with Dr. Sofia, Orthopaedic Oncologist at , with repeat imaging as an outpatient - Pain control as above - Was simulated and given one high fraction on Tuesday by Dr. Mckeon - S/p Zoliz yesterday per Onc 3. Fever - T max 38.2 overnight with slight tachycardia - CXR performed which showed worsening pneumonitis, potentially viral - Afebrile so far today, HR improved - Will hold off on abx for now, continue to monitor, if spikes another fever, will start empiric abx Diet - Regular Code - Full Ppx - SCDs pending surgical evaluation, high risk for VTE so would commence LMWH afterwards Dispo - Pending clinical course Subjective: Patient reports some pain in LLE Objective: Vital Signs Temp Pulse Resp BP Pulse Ox 36.8 C 93 14 109/66 92 05/14/18 08:00 05/14/18 08:00 05/14/18 08:00 05/14/18 08:00 05/14/18 08:00 Laboratory Results 05/14/18 05:51 05/13/18 05/14/18 05/15/18 05:59 05:59 05:59 Intake Total 3205 1550 Output Total 4500 1700 Balance -1295 -150 PT 13.9 SEC (12.0-15.0) 05/10/18 21:30 INR 1.05 (0.83-1.16) 05/10/18 21:30 - Physical Exam Constitutional: no apparent distress Eyes: PERRL Ears, Nose, Mouth, Throat: moist mucous membranes Cardiovascular: regular rate and rhythym Respiratory: no respiratory distress Skin: warm Musculoskeletal: pain with ROM Neurologic: AAOx3 Psychiatric: interacting appropriately ICD10 Worksheet Patient Problems: Problems Problem Status Onset Fracture of femoral neck, left, closed Acute Mass of left lung Acute Mass of right lung Acute
[2018-05-14] MEDS: AZITHROMYCIN IV 500 MG in NS 250 ML IV SCH (21:16)
[2018-05-15 05:17] LABS: PLATELET COUNT 246 10^3/uL (150-400)
[2018-05-15] MEDS: D5W 1/2 NS W/ 20 KCl/L 1,000 ML IV SCH (07:04)
[2018-05-15] MEDS: AZITHROMYCIN IV 500 MG in NS 250 ML IV SCH (09:31)
[2018-05-15] MEDS ORDERED: LEUPROLIDE SC ONE (10:07)
[2018-05-15] MEDS ORDERED: MIDAZOLAM 2 MG/2 ML VIAL IVP PRN (11:03)
[2018-05-15] MEDS ORDERED: MEPERIDINE 25 MG/ML SYR IVP PRN (11:03)
[2018-05-15] MEDS ORDERED: NALOXONE HCL 0.4 MG/ML INJ IVP PRN (11:03)
[2018-05-15] MEDS ORDERED: fentaNYL 100 MCG/2 ML INJ IVP PRN (11:03)
[2018-05-15] MEDS ORDERED: FLUMAZENIL 0.5 MG/5 ML MDV IVP PRN (11:03)
[2018-05-15] MEDS ORDERED: NS 1,000 ML IV SCH (11:15)
[2018-05-15] MEDS ORDERED: LORazepam 2 MG/ML INJ IVP ONE (11:27)
--- NOTE | 2018-05-15 13:02 | PDRADPN ---
Radiology Procedure Note Date of Procedure: 05/15/18 Radiologist: Terrance Ballard Anesthesia: IV Sedation Pre-op Diagnosis: breast cancer Post-op Diagnosis: same Procedure: CT-guided left ischial tuberosity lesio biopsy Inf/Abcess present in the surg proc area at time of surgery?: No
--- NOTE | 2018-05-15 13:02 | PDPROPOC ---
Sedation Plan of Care ASA Classification: ASA 3 Mallampati Score: Class 2 Mallampati Reference Image:
--- NOTE | 2018-05-15 13:53 | HOSPPROG ---
Hospitalist Progress Note Assessment/Plan: 52 yo F w/ hx of breast CA presents with L hip pain and found to have widespread metastases and pathologic L hip fracture. Plan: 1. Breast CA, recurrent - Presented with various MSK complaints; imaging revealed widespread osseous metastases and likely lymphangitic spread in the lungs. She was initially diagnosed with DCIS in 2008 and treated with lumpectomy and radiation. She had Stage I disease recurrence in 2011 treated with mastectomy and chemotherapy. She follows with Dr. Sridevi Cherry. - Oncology consulted and following - Morphine PRN for pain control, Ativan PRN for anxiety - Abd CT shows liver, lungs, thoracolumbar metastasis - MRI Brain performed on 05/14 which showed 6 small intraparenchymal lesions concerning for brain metastasis - Bone biopsy of L ilium performed this morning - Lupron planned for today - PET as an outpatient 2. Pathologic L femoral neck fracture, acute - L hip pain was her presenting symptom. This will likely be a complex situation noting the extent of malignant involvement. - Orthopedic surgery (Dr. Hernandez) consulted who recommends Orthopaedic Oncology consult, patient to f/u with Dr. Sofia, Orthopaedic Oncologist at , with repeat imaging as an outpatient - Pain control as above - Was simulated and given one high fraction on Tuesday by Dr. Mckeon - S/p Zometjoni on Onc 3. Fever - Febrile again overnight - CXR performed on 05/13 which showed worsening pneumonitis, potentially viral - Started on Ceftriaxone/Azithromycin by overnight MD, will continue for now Diet - Regular Code - Full Ppx - SCDs pending surgical evaluation, high risk for VTE so would commence LMWH afterwards Dispo - Pending clinical course, possible tomorrow Subjective: Patient upset this morning about NPO status, with dry mouth Objective: Vital Signs Temp Pulse Resp BP Pulse Ox 37.3 C 87 14 111/66 93 05/15/18 11:46 05/15/18 11:46 05/15/18 11:46 05/15/18 13:36 05/15/18 13:36 Microbiology 05/14/18 20:22 Respiratory Panel (PCR) - Final Nasal, Sinus - Swab No Organism Detected By Pcr Laboratory Results 05/15/18 04:42 05/14/18 05/15/18 05/16/18 05:59 05:59 05:59 Intake Total 1550 600 30 Output Total 1700 700 Balance -150 -100 30 PT 13.9 SEC (12.0-15.0) 05/10/18 21:30 INR 1.05 (0.83-1.16) 05/10/18 21:30 - Physical Exam Constitutional: uncomfortable Eyes: PERRL Ears, Nose, Mouth, Throat: dry mucous membranes Cardiovascular: regular rate and rhythym Respiratory: no respiratory distress Gastrointestinal: soft, non-tender abdomen Skin: warm Musculoskeletal: pain with ROM Neurologic: AAOx3 Psychiatric: anxious ICD10 Worksheet Patient Problems: Problems Problem Status Onset Fracture of femoral neck, left, closed Acute Mass of left lung Acute Mass of right lung Acute
[2018-05-15] MEDS: ENOXAPARIN 40 MG/0.4 ML SYR SC SCH (14:48)
[2018-05-15] MEDS: LORazepam 1 MG TAB PO PRN (19:26)
--- NOTE | 2018-05-15 20:15 | SOAPPROG ---
SOAP Progress Note Assessment/Plan: Assessment/Plan: 52 woman w hx of T1cN0 ER+KS-HER2 neg breast cancer in 2012 s/ p L mastectomy and SLNB This was followed by TC x 6 and she has been on tamoxifen since that time who presented w L hip pain discovered to have femoral neck fracture w diffuse osseous metastatic disease, presumably metastatic breast ca 1. L fem neck fracture - not amenable to surgery at this time given extensive lytic lesions Pain controlled. Can ambulate w walker (non weight bearing) will need to see DR Sofia as outpt Was simulated and given one high fraction on Tuesday by Dr. Mckeon. 2. Left rib pain-films reviewed with Dr. conley. Has bone mets in lateral 8, 10 , 11 ribs. Suspect radiation would be of benefit. Discussed with Dr. Ross, will get XRT as outpatient 2. Diffuse metastatic dz - mets to lungs (lymphangitic spread?), liver (3 mets) , skeleton and brain soft tissue dx recommended for definitive path and molecular testing. Reviewed CT scans today with Dr. Conley. Easily accessible lesion in left ileum with prominent soft tissue component. Preference is to obtain soft tissue sample (as opposed to bone) due to potential issues with false neg results on immunostains with the decalcification process. Will send for foundation testing, along with ER, KS and Her2. Received Zometa on 05/13. Treatment will likely be antiestrogen therapy with CDK inhibitor. Chemotherapy would be a consideration if lung disease proves to be lymphangitic and has progressive resp compromise. -Lupron tomorrow, PET as an outpatient. 3. Low grade fever last night-unclear source.?Viral process vs tumor fever 4. ? Lymphangitic disease-CT/CXR's reviewed with Dr. Conley, consideration for viral pneumonitis. Not hypoxemic but febrile. will monitor for now, no indication for frontline chemotherapy Subjective: Patient continues to have pain in her ribs - febrile 05/14 at 1600 to 38.3. No localizing symptoms. NPO for biopsy today. Objective: Vital Signs Temp Pulse Resp BP Pulse Ox 37.0 C 83 18 108/69 94 05/15/18 20:01 05/15/18 20:01 05/15/18 20:01 05/15/18 20:01 05/15/18 20:01 Microbiology 05/14/18 20:22 Respiratory Panel (PCR) - Final Nasal, Sinus - Swab No Organism Detected By Pcr Laboratory Results 05/15/18 04:42 05/14/18 05/15/18 05/16/18 05:59 05:59 05:59 Intake Total 4721 638 7975 Output Total 1700 700 Balance -150 -100 1330 PT 13.9 SEC (12.0-15.0) 05/10/18 21:30 INR 1.05 (0.83-1.16) 05/10/18 21:30 ICD10 Worksheet Patient Problems: Problems Problem Status Onset Fracture of femoral neck, left, closed Acute Mass of left lung Acute Mass of right lung Acute
[2018-05-16] MEDS: LORazepam 1 MG TAB PO PRN ×3 (02:31→20:51)
[2018-05-16] MEDS: ENOXAPARIN 40 MG/0.4 ML SYR SC SCH (08:39)
[2018-05-16] MEDS: AZITHROMYCIN IV 500 MG in NS 250 ML IV SCH (09:32)
[2018-05-16] MEDS ORDERED: LEUPROLIDE SC ONE (12:00)
--- NOTE | 2018-05-16 12:30 | HOSPPROG ---
Hospitalist Progress Note Assessment/Plan: Assessment/Plan: 52 yo F w/ hx of breast CA presents with L hip pain and found to have widespread metastases and pathologic L hip fracture. Plan: # Breast CA, recurrent - Diagnosed with DCIS in 2008 and tx'd with lumpectomy and radiation. Recurrence in 2011 treated with mastectomy and chemo. She follows with Dr. Sridevi Cherry. Recent imaging revealed widespread osseous metastases and likely lymphangitic spread in the lungs. Abd CT shows liver, lungs, thoracolumbar metastasis. MRI Brain 05/14 showed 6 sm intraparenchymal lesions concerning for brain mets. - Oncology following - Start MS contin 15 mg bid plus Morphine IR for breakthrough pain - s/p bone biopsy of left iliac lesion, path pending - Lupron planned for today - PET as an outpatient # Rib pain and pathologic L femoral neck fracture, acute - Orthopedic surgery ( Dr. Hernandez) consulted who recommends Orthopaedic Oncology consult, patient to f/ u with Dr. Sofia, Orthopaedic Oncologist at , with repeat imaging as an outpatient - Pain control as above - Was simulated and given one high fraction on Tuesday by Dr. Mckeon - S/p Zometa - IR to consult today # Fever - unclear source, afebrile x48 hrs - will complete short course of ceftriaxone, d/c azithromycin s/p 1.5 g Diet - Regular Code - Full Ppx - SCDs for now, defer pharm with possible procedure planned Dispo - inpatient for ongoing management acute cancer pain Subjective: Pt doing ok, pain a little better controlled. Worried abt poor pain control at home. No more fevers. No cough, CP, SOB or urinary symptoms. Objective: Vital Signs Temp Pulse Resp BP Pulse Ox 36.3 C 71 16 102/65 95 05/16/18 09:07 05/16/18 09:07 05/16/18 09:07 05/16/18 09:07 05/16/18 09:07 Microbiology 05/14/18 20:22 Respiratory Panel (PCR) - Final Nasal, Sinus - Swab No Organism Detected By Pcr Laboratory Results 05/15/18 04:42 05/15/18 05/16/18 05/17/18 05:59 05:59 05:59 Intake Total 600 1930 Output Total 700 Balance -100 1930 PT 13.9 SEC (12.0-15.0) 05/10/18 21:30 INR 1.05 (0.83-1.16) 05/10/18 21:30 - Physical Exam Constitutional: no apparent distress Eyes: PERRL Ears, Nose, Mouth, Throat: moist mucous membranes Cardiovascular: regular rate and rhythym Respiratory: no respiratory distress, clear to auscultation Gastrointestinal: normoactive bowel sounds, soft, non-tender abdomen Skin: warm Musculoskeletal: full muscle strength Neurologic: AAOx3 Psychiatric: interacting appropriately ICD10 Worksheet Patient Problems: Problems Problem Status Onset Fracture of femoral neck, left, closed Acute Mass of left lung Acute Mass of right lung Acute
[2018-05-16] MEDS: morphINE SR 15 MG TAB PO SCH ×2 (12:55→20:47)
--- NOTE | 2018-05-16 14:55 | ASMTCMCOM ---
CM Note CM Note Notes: Patient seen by Palliative Care Jarred Chacko and CM to establish goals and provide information regarding palliative care. The patient, her mother and sister were all present. The patient is understandably emotional at times given the diagnosis of advanced metastatic cancer. She is open to having a palliative care provider. She shares with us she hopes to be able to return to work. Per therapies, she would benefit form C as well. Referral placed to [facility] for RN, PT and OT. Will send referral via [employer] to [place]. SNEHAL to follow. Plan: Dc with [facility] and palliative care services when medically stable for discharge. Date Signed: 05/16/2018 02:55 PM Electronically Signed By:Edith Sumner RN
[2018-05-16] MEDS ORDERED: BUPIVACAINE 0.5% 30 ML SDV ONE (16:10)
[2018-05-16] MEDS ORDERED: TRIAMCINOLONE ACETONIDE 200 MG/5 ML MDV IM ONE (16:10)
--- NOTE | 2018-05-16 21:50 | SOAPPROG ---
SOAP Progress Note Assessment/Plan: Assessment/Plan: 52 woman w hx of T1cN0 ER+MD-HER2 neg breast cancer in 2012 s/ p L mastectomy and SLNB This was followed by TC x 6 and she has been on tamoxifen since that time who presented w L hip pain discovered to have femoral neck fracture w diffuse osseous metastatic disease, presumably metastatic breast ca 1. L fem neck fracture - not amenable to surgery at this time given extensive lytic lesions Pain controlled. Can ambulate w walker (non weight bearing) will need to see DR Sofia as outpt Was simulated and given one high fraction on 05/[address] Mckeon. 2. Left rib pain-films reviewed with Dr. conley. Has bone mets in lateral 8, 10 , 11 ribs. Suspect radiation would be of benefit. Discussed with Dr. Ross, will get XRT as outpatient -evaluate with IR for intercostal nerve block -transition to oral pain medication 3. Diffuse metastatic dz - mets to lungs (lymphangitic spread?), liver (3 mets) , skeleton and brain soft tissue dx recommended for definitive path and molecular testing. Reviewed CT scans today with Dr. Conley. Easily accessible lesion in left ileum with prominent soft tissue component biopsied 05/15. Preference is to obtain soft tissue sample (as opposed to bone) due to potential issues with false neg results on immunostains with the decalcification process. Will send for foundation testing, along with ER, MD and Her2. Received Zometa on 05/13. Treatment will likely be antiestrogen therapy with CDK inhibitor. Chemotherapy would be a consideration if lung disease proves to be lymphangitic and has progressive resp compromise. -Lupron today, PET as an outpatient. 4. Fevers -unclear source. ?Viral process (CT lung findings, see below) vs tumor fever. No fever for 24 hours. No new symptoms. 5. ? Lymphangitic disease-CT/CXR's reviewed with Dr. Conley, consideration for viral pneumonitis. Not hypoxemic but febrile. no indication for frontline chemotherapy 05/16/18 21:48 05/16/18 21:54 Subjective: Patient reports ongoing pain in the left rib cage, lower half. Some biopsy pain overnight but has resolved. Been getting IV morphine. NO new symptoms. No SOB or cough. Objective: Vital Signs Temp Pulse Resp BP Pulse Ox 36.8 C 74 16 109/77 95 05/16/18 20:07 05/16/18 20:07 05/16/18 20:07 05/16/18 20:07 05/16/18 20:07 Laboratory Results 05/15/18 04:42 05/15/18 05/16/18 05/17/18 05:59 05:59 05:59 Intake Total 600 1930 500 Output Total 700 Balance -100 1930 500 PT 13.9 SEC (12.0-15.0) 05/10/18 21:30 INR 1.05 (0.83-1.16) 05/10/18 21:30 General Appearance: alert, no distress Respiratory: lungs clear to auscultation and percussion Chest: discomfort left costal margin Abdomen: non-tender, soft, no HSM Lymphatic: no adenopathy Ext: no LE edema Neuro/Psych: alert and oriented ICD10 Worksheet Patient Problems: Problems Problem Status Onset Fracture of femoral neck, left, closed Acute Mass of left lung Acute Mass of right lung Acute
[2018-05-17] MEDS: IBUPROFEN 600 MG TAB PO PRN (05:04)
[2018-05-17] MEDS: morphINE SR 15 MG TAB PO SCH (08:40)
[2018-05-17] MEDS: ENOXAPARIN 40 MG/0.4 ML SYR SC SCH (08:41)
[2018-05-17] MEDS ORDERED: LETROZOLE 2.5 MG TAB PO SCH (09:00)
--- NOTE | 2018-05-17 10:45 | SOAPPROG ---
SOAP Progress Note Assessment/Plan: Assessment/Plan: 52 woman w hx of T1cN0 ER+ND-HER2 neg breast cancer in 2012 s/ p L mastectomy and SLNB This was followed by TC x 6 and she has been on tamoxifen since that time who presented w L hip pain discovered to have femoral neck fracture w diffuse osseous metastatic disease, metastatic breast ca 1. L fem neck fracture - not amenable to surgery at this time given extensive lytic lesions Pain controlled. Can ambulate w walker (non weight bearing) will need to see Dr. Sofia as outpt Was simulated and given one high fraction on 05/[address] Mckeon. Received Zometa on 05/13 2. Left rib pain-films reviewed with Dr. conley. Has bone mets in lateral 8, 10 , [address] Ross, will get XRT as outpatient, today at 3PM. Intercostal nerve block on 05/16 well tolerated 3. Diffuse metastatic dz - mets to lungs (lymphangitic spread?), liver (3 mets) , skeleton and brain soft tissue dx recommended for definitive path and molecular testing. Reviewed CT scans today with Dr. Conley. Easily accessible lesion in left ileum with prominent soft tissue component biopsied 05/15 with results compatible with breast cancer, ER positive. Will send for foundation testing. Treatment will be letrozole and CDK inhibitor. Lupron given 05/16. Chemotherapy would be a consideration if lung disease proves to be lymphangitic and has progressive resp compromise. -Letrozole today 2.5mg -PET as an outpatient. 4. Fevers -unclear source. ?Viral process (CT lung findings, see below) vs tumor fever. No fever for 48 hours. No new symptoms. 5. ? Lymphangitic disease-CT/CXR's reviewed with Dr. Conley, consideration for viral pneumonitis. Not hypoxemic but febrile. no indication for frontline chemotherapy 05/16/18 21:48 05/16/18 21:54 05/17/18 10:39 05/17/18 10:47 Subjective: patient reports pain improvement in left ribs with intercostal block yesterday. no fevers or chills. received lupron yesterday. Objective: Vital Signs Temp Pulse Resp BP Pulse Ox 36.7 C 70 14 97/60 L 94 05/17/18 07:32 05/17/18 07:32 05/17/18 07:32 05/17/18 07:32 05/17/18 07:32 Laboratory Results 05/15/18 04:42 05/16/18 05/17/18 05/18/18 05:59 05:59 05:59 Intake Total 1929 675 Balance 1929 675 PT 13.9 SEC (12.0-15.0) 05/10/18 21:30 INR 1.05 (0.83-1.16) 05/10/18 21:30 General Appearance: alert, no distress Respiratory: lungs clear to auscultation and percussion Chest: discomfort left costal margin Abdomen: non-tender, soft, no HSM Lymphatic: no adenopathy Ext: no LE edema Neuro/Psych: alert and oriented ICD10 Worksheet Patient Problems: Problems Problem Status Onset Fracture of femoral neck, left, closed Acute Mass of left lung Acute Mass of right lung Acute
[2018-05-17 11:47] VITALS: BP 112/72
--- NOTE | 2018-05-17 12:52 | PDIAF ---
- Diagnosis Diagnosis: metastatic cancer Code Status: Full Code - Medication Management Discharge Medications: electronically signed and located in the Home Medication List. - Orders Services needed: Home Care, Registered Nurse, Physical Therapy Home Care Face to Face: I certify that this patient was under my care and that I had the required [id number] encounter meeting the encounter requirements on the discharge day. My findings support the fact that the patient is homebound as defined in Home Care Face to Face Continued: CMS Chapter 7 Medicare Benefits Manual 30.1.1 , The condition of the patient is such that there exists a normal inability to leave home and consequently, leaving home would require a considerable and taxing effort. Diet Recommendation: no restrictions on diet Additional Instructions: Followup with Orthopaedic Oncology: Dr. Sofia at , office #[phone] Follow up with [facility] for Radiation therapy this coming Tuesday! - Follow Up Care Current Providers and Referrals: Sridevi Cherry MD [Medical Doctor] - Geremias Hernandez MD [Medical Doctor] - As per Instructions Chelsey Puentes [Primary Care Provider] - As per Instructions
--- NOTE | 2018-05-17 13:25 | ASMTLACE ---
LACE Length of stay for Answers: 4-6 days current admission Acuity / Level of Answers: Yes Care: Did the patient have an inpatient admission? Comorbidities - select Answers: Any tumor (including all that apply lymphoma or leukemia) Opioid dependence / Chronic pain # of Emergency department Answers: 1-2 visits in the last 6 months Score: 14 Date Signed: 05/17/2018 01:24 PM Electronically Signed By:Edith Sumner RN
--- NOTE | 2018-05-17 13:35 | ASMTDCNOTE ---
Case Management Discharge Discharge Order Complete? Answers: Yes Patient to Obtain Answers: via Family Medications Transportation Arranged Answers: Family/Friends Faxed Final Orders Answers: Yes Notes: [facility] and [facility] Discharge Comments Notes: Medically cleared to dc to home with [facility] and Outpatient palliative care from [facility]. Date Signed: 05/17/2018 01:34 PM Electronically Signed By:Edith Sumner RN
--- NOTE | 2018-05-17 16:45 | GDS ---
DISCHARGE DIAGNOSES: 1. Metastatic breast cancer. 2. Pathologic left femoral neck fracture. 3. Cancer pain secondary to bone metastases. 4. Fever without a source, resolved. CONSULTANTS: 1. Dr. Ina Bee, Oncology. 2. Dr. Mateo Stevenson, Interventional Radiology. 3. Dr. Geremias Hernandez, Orthopedic Surgery. PROCEDURES: 1. CT-guided bone biopsy, May 15, 2018, of a left distal tuberosity mass, with pathology reveali ng metastatic carcinoma compatible with breast primary. 2. Ultrasound-guided intercostal nerve block performed by Interventional Radiology with good respons e. HISTORY: For details, please see history and physical dated May 11, 2018. In brief, the ramin domínguez is a 52-year-old female with a history of metastatic breast cancer, who presented to the emergency department with left hip pain and chest wall pain. She was found to have a left femoral neck fractur e and osseous metastases in her ribs, was admitted to the hospital for further management. HOSPITAL COURSE: Patient was admitted to the Cancer Care Unit. Orthopedic Surgery consult was miguel ángel taylor. Based on the extensive nature of the fracture of her femoral head in the setting of extensive o sseous metastatic disease, it was recommended that she be managed by orthopedic oncologist and was re ferred to Dr. Sofia at the [place]. It is recommended she remain nonweightbearing to the left lowe r extremity until followup with him. Pain control was an issue during her hospitalization. She was started on MS Contin with immediate release morphine for breakthrough pain. This did improve her di n control. In addition, Interventional Radiology consult was requested, and she underwent ultrasound -guided intercostal nerve block, which provided her significant relief from her rib pain secondary to osseous metastases. In addition, a bone biopsy of an ischial tuberosity mass was obtained, which wa s consistent with primary breast metastatic lesion. She was followed by Oncology during her hospital ization. She was given 1 dose of radiation on May [address] Mckeon and will continue radiation therapy as an outpatient. She was started on letrozole at the time of discharge, and also received a dose of Lupron on May 16. She will need a PET scan as an outpatient, and this will be arranged by her primary oncologist. In addition, she did present with a fever, possibly a tumor fever. She h ad no symptoms of pneumonia or urinary tract infection. Her blood cultures were negative. Respirato ry viral panel PCR was also negative. She received 5 days of ceftriaxone and 1.5 g of azithromycin f or possible pneumonia, though her imaging is likely more consistent with pneumonitis or a viral proce ss. She remained afebrile for greater than 72 hours at the time of discharge. DISPOSITION: Patient is discharged home in stable condition, with plans for home health RN, PT. FOLLOWUP: 1. Dr. Sridevi Cherry, Oncology. 2. Dr. Mckeon, Radiation Oncology. 3. Dr. Sofia at [facility] Orthopedic Oncology. 4. Dr. Chelsey Puentes, primary care. 5. She was also given resources, including [facility]. /[id number]/[id number]
--- NOTE | 2018-05-18 12:26 | ASDISCHSUM ---
Discharge Information Plan Status:Home with Home Health Medically Cleared to Leave:05/16/2018 Discharge Date:05/17/2018 01:26 PM D/C Disposition:Home Health Service [facility] D/C Disposition:Home, Routine, Self-Care Projected Discharge Date:05/17/2018 11:00 AM Transportation at D/C: Discharge Delay Reason: Follow-Up Date:05/17/2018 11:00 AM Discharge Slot: Final Diagnosis: Placement Information Referral Type:Palliative Care Referral ID:[id number] Provider Name:[facility] Address 1:[address] Phone Number: Address 2: Fax Number: [facility]:[place] Selection Factors: State:[place] Referral Type:*Home Health Care Services Referral ID:[id number] Provider Name:[facility] Address 1:[address] [place] [address] Address 2: [facility]:[place] Selection Factors: State:[place] Patient Contact Information Contact Name:SHARONMCKAY Relationship:Sister Address: Work Phone: City[place] Alternate Phone: [facility]/Zip Code:[place] Email: Financial Information Financial Class:Medabil Primary Plan Desc:[place] [facility] Primary Plan Number:[id number] Secondary Plan Desc: Secondary Plan Number: Assessment Information LACE LACE Length of stay for Answers: 4-6 days current admission Acuity / Level of Answers: Yes Care: Did the patient have an inpatient admission? Comorbidities - select Answers: Any tumor (including all that apply lymphoma or leukemia) Opioid dependence / Chronic pain # of Emergency department Answers: 1-2 visits in the last 6 months Score: 14 Date Signed: 05/17/2018 01:24 PM Electronically Signed By:Edith Sumner RN [facility] CM Progress Note CM Note CM Note Notes: Pt is single and has boyfriend Roel and sister Deena who are supportive. Chart reviewed in rounds. Pt admitted for femoral fracture due to extensive metastatic Breast CA after several years of remission and double mastectomy in 2011. Oncologist is recommending pt to orthopedic oncologist at [facility], however extent of disease would make recovery from surgery grim. Plan is now to manage pain and mobilize pt but if this is not possible, transfer her to [facility] for further evaluation. Eliza Savage, navigator called to consult with pt. Therapies have yet to evaluate. Discharge plan TBD. Date Signed: 05/11/2018 05:05 PM Electronically Signed By:Angelika Robles [facility] Progress Note CM Note CM Note Notes: Pt admitted for metastatic cancer to bone with femur fracture. PT and OT recommending home care. Palliative eval orders placed today at end of day. Pt agreeable to home therapy through [facility] and they are able to accept. SNEHAL also mentioned that palliative orders had been placed and pt became tearful. SNEHAL did some appropriate education on the function of palliative care and told pt that tour guide would be available to chat with her over the weekend about what palliative care is and how it may be helpful and what agencies are available. Family and friends were in the room and expressed overwhelm at number of decisions to be made. SNEHAL explained that decisions regarding support were only needed in the timing that was comfortable for the pt, and that the location worker was a great resource when they were ready. It may be appropriate for tour guide to touch base with pt over the weekend still for support and listening. D/C Plan: Home with [facility] PT/OT Date Signed: 05/12/2018 04:27 PM Electronically Signed By:Angelika Robles [facility] Progress Note CM Note CM Note Notes: Patient seen by Palliative Care Jarred Chacko and CM to establish goals and provide information regarding palliative care. The patient, her mother and sister were all present. The patient is understandably emotional at times given the diagnosis of advanced metastatic cancer. She is open to having a palliative care provider. She shares with us she hopes to be able to return to work. Per therapies, she would benefit form [facility] as well. Referral placed to [facility] for RN, PT and OT. Will send referral via [employer] to [facility]. to follow. Plan: Dc with [facility] and palliative care services when medically stable for discharge. Date Signed: 05/16/2018 02:55 PM Electronically Signed By:Edith Sumner RN Case Management Discharge Plan Note Case Management Discharge Discharge Order Complete? Answers: Yes Patient to Obtain Answers: via [facility] [employer] Transportation Arranged Answers: Family/Friends Faxed Final Orders Answers: Yes Notes: [facility] and [facility] Discharge Comments Notes: Medically cleared to dc to home with [facility] and Outpatient palliative care from [facility]. Date Signed: 05/17/2018 01:34 PM Electronically Signed By:Edith Sumner RN Intervention Information
== END 2018-05-17 13:26 | disposition home health service (06) | DRG 478 ==
LOC: INTOOBSV 23:08 → F1N 05-11 01:04 → OBSVTOIN 05-11 16:54
PROVIDERS: ADMIT Student in an Organized Health Care Education/Training Program; ATTEND Student in an Organized Health Care Education/Training Program
PROC: 0QB33ZX Excision of Left Pelvic Bone, Percutaneous Approach, Diagnostic (ICD-10-PCS; principal; 2018-05-15 13:14)
PROC: 3E0T3BZ Introduction of Anesthetic Agent into Peripheral Nerves and Plexi, Percutaneous Approach (ICD-10-PCS; 2018-05-16)
PROC: 3E0T33Z Introduction of Anti-inflammatory into Peripheral Nerves and Plexi, Percutaneous Approach (ICD-10-PCS; 2018-05-16)
DX: M84.552A Pathological fracture in neoplastic disease, left femur, initial encounter for fracture (principal); C79.51 Secondary malignant neoplasm of bone; E86.9 Volume depletion, unspecified; G89.3 Neoplasm related pain (acute) (chronic); R50.9 Fever, unspecified; Z85.3 Personal history of malignant neoplasm of breast; Z23 Encounter for immunization
CPT/HCPCS: 82435-PO; 82565-PO; 82947-PO; 84132-PO; 84295-PO; 84520-PO; 85014-PO; 86300-90; 97116-GP; 97162-GP; 97165-GO; 97530-GP; 97535-GO; A9585; G0008; G0378; J0456; J0696; J1650; J2060; J2250; J2270; J2310; J3010; J3301; J3489; J9217; Q9967

== ENCOUNTER 2018-05-27 13:22 | Emergency (ER) | payer OTHER ==
--- NOTE | 2018-05-27 13:31 | EDPHY ---
HPI/HX/ROS/PE/MDM Narrative: CHIEF COMPLAINT: Altered mental status HPI: This patient is a 52 year old female with history of metastatic breast cancer. She was recently released from the hospital approximately 1-2 weeks ago, which is when she was diagnosed with widely metastatic disease, including mets to brain, spine and a pathologic left hip fracture. Family states that patient has been experiencing problems with constipation thought secondary to morphine use. They have been treating with several laxatives without relief. This morning, family noticed patient was quite agitated and lethargic, which they assumed might be because of the laxatives. She had one episode of non-bilious emesis around 4am. She was given Ativan at 11am. After failure to improve, family consulted with oncologist over the phone who recommended going to the ER. EMS noted BGL 237. No IV access was available so a right humeral IO was started prior to arrival. REVIEW OF SYSTEMS: A comprehensive 10 system review of systems is otherwise negative aside from elements mentioned in the history of present illness and medical decision making. This was obtained from family. PMH: Widely-metastatic breast cancer. Treatment with radiation, Zometa, Lupron. L hip fracture secondary secondary to bone metastasis. SOCIAL HISTORY: Here with sister and partner. PHYSICAL EXAM: General:Patient is tachypneic, agitated and appears to be severely ill. Head: Atraumatic. ENT:No jaundice. Mucous membranes dry. Neck: Normal inspection. Full range of motion. Respiratory: Tachypneic. Left mastectomy scar noted. Cardiovascular: Tachycardic, weak carotid pulse. Abdomen:The abdomen is nontender to palpation. Skin: Skin appears diffusely mottled, cool. Extremities: No signs of trauma. Neuro: Patient denies pain, no focal deficits noted. ED Course: 13:22 Met EMS on arrival 52 year old female with metastatic breast cancer presents with altered mental status, tachypnea onset this morning. She is hypotensive and tachypneic here in the ED. Plan for EKG, labs including CBC, chemistries, POC troponin, lactic acid , UA. WBC elevated at 22,000. Hypotensive at 71/49. POC lactic acid 9.7. AMS. [Septic shock.] Afebrile. 13:50 Plan for central line. Patient is comfortable with this procedure. She declines intubation should that become necessary. Tachypneic RR 46. Snoring. Mottling of skin. 13:59 Troponin 3.16 14:00 SpO2 in 70s and patient remains tachypneic, pale, skin mottled. Patient and family agree to intubation. 14:02 EKG was ordered and interpreted by myself. Please see [employer] system for official reading. 14:05 RT at bedside 14:07 Plan for intubation. Patient preoxygenated at 100% 14:10 Confirmed with patient that she agrees to intubation at this time. 14:13 Procedure: Rapid sequence intubation. Indication for the procedure was airway protection, respiratory failure. The patient was preoxygenated with 100% oxygen by face mask and nasal cannula. The patient was given the following IV medications: 20mg Etomidate, 100mg succinylcholine. The patient was orally endotracheally intubated under direct visualization with a 7.5 ETT. Tracheal intubation was confirmed with misting on the tube; breath sounds were auscultated equally bilaterally; appropriate color change with [place] End Tidal CO2 detector. Chest X-ray shows ETT in good position. The procedure was performed by myself, Dr. Maria. 14:30 Patient bradycardic around 35 bpm. 14:33 Administered epinephrine per protocol. 14:33 Pulses not found. CPR initiated. 14:34 Shock administered. 14:36 V fib on monitor. Second shock administered. 14:37 Intubation check 14:38 IO placed R tibia. 14:38 ROSC. Strong carotid and femoral pulse. 14:39 No pulse found. Resumed CPR. Administered epi. 14:41 Pulse check. Heart motion noted on US. No pulses found. CPR continued. 14:43 Pulse check. CPR continued. 14:45 Pulse check. CPR continued. Plan to administer third dose epi. Administered 14:46. 14:47 Pulse check. CPR continued. No pericardial effusion. Normal chest x-ray. SpO2 100%. 14:48 Family at bedside. 14:53 Femoral US indicating weak pulse. Plan for repeat EKG. 14:56 Repeat EKG was ordered and interpreted by myself. Please see [employer] system for official reading. 14:[address] Serra, hospitalist. He is at bedside. 15:00 Patient pulseless. Resume CPR. Reviewed recent brain MRI results. Metastatic lesions to brain present. 15:06 Procedure: Rapid sequence intubation. Indication for the procedure was airway protection, respiratory failure. The patient was preoxygenated with 100% oxygen by face mask and nasal cannula. The patient was given the following IV medications: 20mg Etomidate, 100mg succinylcholine. The patient was orally endotracheally intubated under direct visualization with a 7.5 ETT. Tracheal intubation was confirmed with misting on the tube; breath sounds were auscultated equally bilaterally; appropriate color change with Nellcor End Tidal CO2 detector. Chest X-ray shows ETT in good position. The procedure was performed by myself, Dr. Maria. 15:07 Patient is re-intubated. 15:11 Pulse check. Disorganized cardiac movement on US. Continued CPR. 15:11 Reviewed I-stat. POC Lactic acid 12.59. 15:15 Pulse check. Resumed CPR. 15:20 Discussed cessation of CPR with patient's family at bedside. Suspect PE or other clotting process. Given patient's severe metastases to her brain, she is not a candidate for anti-clot medications. Dr. Serra, at bedside, concurs. We have explained the situation to the family. 15:22 Pulse check. US unchanged. Dr. Serra recommends cessation of CPR to the family at this point given the interventions performed. The patient's family at bedside accept this. CPR stopped at this time. Time of 15:23. I spent a total of 120 minutes of critical care time in obtaining history, performing a physical exam, bedside monitoring of interventions, collecting and interpreting tests and discussion with consultants but not including time spent performing procedures. MDM: This patient with history of widely metastatic breast CA and recent discharge from the hospital presented with overall weakness and discomfort, thought to be related to laxative use/constipation, but arrived to ED in extremis. Her SBP was extremely low on arrival, and she was tachypneic with diffuse skin mottling. After initial IV access, she was moved to the resuscitation room for central line placement and intensive care. During prep for central line placement, the patient was noted to by hypoxic to the 70s with worsening respiratory function. Despite earlier stated desire to not be intubated, I discussed this option with family in the family room who felt comfortable with intubation, and with the patient herself. Intubation was uncomplicated and patient seemed to tolerate procedure well. ETT position was confirmed via direct visualization as well as color change and CXR. Approximately 5-7 minutes after intubation, patient was noted to bryan down to the 30s with no palpable pulse. Ventilator was disconnected and patient bagged. I reconfirmed tube placement and began ACLS. The patient had one episode of brief ROSC, but steadily declined with PEA noted. No pericardial effusion was seen on US. Family was invited into resuscitation room. At their urging we continued CPR for many more rounds with only steady deterioration and lack of response. In consultation with family, we all agreed that further resuscitation was futile. Cause of is unknown. Patient is certainly at risk for massive PE, but not a good candidate for tPA given recently diagnosed brain metastases and overall poor chance of survival. - Data Points Imaging Results: Imaging Impressions Chest X-Ray 05/27/18 14:16 Impression: Good ET tube position. Imaging: I viewed and interpreted images myself Laboratory Results: Laboratory Results 05/27/18 13:48 05/27/18 13:48 05/27/18 05/27/18 05/27/18 15:11 15:05 13:57 WBC RBC Hgb POC Hgb 8.8 gm/dL L gm/dL (12.6-16.3) Hct POC Hct 26 % L % (38-47) MCV MCH MCHC RDW Plt Count MPV Neut % (Auto) Lymph % (Auto) [place] % (Auto) Eos % (Auto) Baso % (Auto) Nucleat RBC Rel Count Absolute Neuts (auto) Absolute Lymphs (auto) Absolute Monos (auto) Absolute Eos (auto) Absolute Basos (auto) Absolute Nucleated RBC Immature Gran % Seg Neutrophils % Band Neutrophils % Lymphocytes % Monocytes % Eosinophils % Basophils % Metamyelocytes % Myelocytes % Promyelocytes % Blast Cells % Immature Gran # Absolute Seg Neuts Absolute Band Neuts Absolute Lymphocytes Absolute Monocytes Absolute Eosinophils Absolute Basophils Absolute Metamyelocyte Absolute Myelocytes Absolute Promyelocytes Absolute Plasma Cells Nucleated RBCs Absolute Blast Cells Plasma Cells % Platelet Estimate Polychromasia Echinocytes PT INR APTT POC Blood Source VENOUS VENOUS Patient Temperature 36.4 DEGREES DEGREES 36.4 DEGREES DEGREES POC VBG pH 7.04 L 7.15 L (7.31-7.42) (7.31-7.42) POC VBG pCO2 48 mmHg H mmHg 37 mmHg L mmHg (40-44) (40-44) POC VBG pO2 35 mmHg mmHg 23 mmHg L mmHg (35-40) (35-40) POC VBG HCO3 13 mEq/L L mEq/L 13 mEq/L L mEq/L (22-26) (22-26) POC VBG Total CO2 15 mEq/L L mEq/L 14 mEq/L L mEq/L (21-27) (21-27) POC VBG Base Excess -18.0 mEq/L L mEq/L -16.0 mEq/L L mEq/L (-2.5-2.5) (-2.5-2.5) VBG Lactic Acid POC Mix VBG O2 Sat 46 % L % 28 % L % (65-75) (65-75) POC FiO2 20.0000 % % (0-100) POC Sodium 147 mEq/L H mEq/L (135-145) Sodium POC Potassium 3.8 mEq/L mEq/L (3.3-5.0) Potassium POC Chloride 110 mEq/L mEq/L (97-110) Chloride Carbon Dioxide Anion Gap POC BUN 23 mg/dL mg/dL (7-23) BUN Creatinine POC Creatinine 1.5 mg/dL H mg/dL (0.6-1.0) Estimated GFR Glucose POC Glucose 246 mg/dL H mg/dL (70-100) POC Lactic Acid [place] 12.6 mmol/L H mmol/L 9.3 mmol/L H mmol/L (0.7-2.1) (0.7-2.1) Calcium Total Bilirubin Conjugated Bilirubin Unconjugated Bilirubin AST ALT Alkaline Phosphatase POC Troponin I Total Protein Albumin Lipase 05/27/18 05/27/18 05/27/18 13:50 13:49 13:48 WBC RBC Hgb POC Hgb 15.3 gm/dL gm/dL (12.6-16.3) Hct POC Hct 45 % % (38-47) MCV MCH MCHC RDW Plt Count MPV Neut % (Auto) Lymph % (Auto) [place] % (Auto) Eos % (Auto) Baso % (Auto) Nucleat RBC Rel Count Absolute Neuts (auto) Absolute Lymphs (auto) Absolute Monos (auto) Absolute Eos (auto) Absolute Basos (auto) Absolute Nucleated RBC Immature Gran % Seg Neutrophils % Band Neutrophils % Lymphocytes % Monocytes % Eosinophils % Basophils % Metamyelocytes % Myelocytes % Promyelocytes % Blast Cells % Immature Gran # Absolute Seg Neuts Absolute Band Neuts Absolute Lymphocytes Absolute Monocytes Absolute Eosinophils Absolute Basophils Absolute Metamyelocyte Absolute Myelocytes Absolute Promyelocytes Absolute Plasma Cells Nucleated RBCs Absolute Blast Cells Plasma Cells % Platelet Estimate Polychromasia Echinocytes PT INR APTT POC Blood Source Patient Temperature POC VBG pH POC VBG pCO2 POC VBG pO2 POC VBG HCO3 POC VBG Total CO2 POC VBG Base Excess VBG Lactic Acid POC Mix VBG O2 Sat POC FiO2 POC Sodium 143 mEq/L mEq/L (135-145) Sodium REJ POC Potassium 4.3 mEq/L mEq/L (3.3-5.0) Potassium REJ POC Chloride 107 mEq/L mEq/L (97-110) Chloride REJ Carbon Dioxide REJ Anion Gap REJ POC BUN 19 mg/dL mg/dL (7-23) BUN REJ Creatinine REJ POC Creatinine 1.2 mg/dL H mg/dL (0.6-1.0) Estimated GFR REJ Glucose REJ POC Glucose 290 mg/dL H mg/dL (70-100) POC Lactic Acid [place] Calcium REJ Total Bilirubin REJ Conjugated Bilirubin REJ Unconjugated Bilirubin REJ AST REJ ALT REJ Alkaline Phosphatase REJ POC Troponin I 3.16 ng/mL H ng/mL (0.00-0.08) Total Protein REJ Albumin REJ Lipase REJ 05/27/18 05/27/18 05/27/18 13:48 13:48 13:45 WBC 22.66 10^3/uL H 10^3/uL (3.80-9.50) RBC 4.47 10^6/uL 10^6/uL (4.18-5.33) Hgb 13.9 g/dL g/dL (12.6-16.3) POC Hgb Hct 43.3 % % (38.0-47.0) POC Hct MCV 96.9 fL fL (81.5-99.8) MCH 31.1 pg pg (27.9-34.1) MCHC 32.1 g/dL L g/dL (32.4-36.7) RDW 12.3 % % (11.5-15.2) Plt Count 197 10^3/uL 10^3/uL (150-400) MPV 9.3 fL fL (8.7-11.7) Neut % (Auto) Not Reported Lymph % (Auto) Not Reported [place] % (Auto) Not Reported Eos % (Auto) Not Reported Baso % (Auto) Not Reported Nucleat RBC Rel Count Not Reported Absolute Neuts (auto) Not Reported Absolute Lymphs (auto) Not Reported Absolute Monos (auto) Not Reported Absolute Eos (auto) Not Reported Absolute Basos (auto) Not Reported Absolute Nucleated RBC Not Reported Immature Gran % Not Reported Seg Neutrophils % 90.0 % % Band Neutrophils % 2.0 % % Lymphocytes % 4.0 % % Monocytes % 4.0 % % Eosinophils % 0.0 % % Basophils % 0.0 % % Metamyelocytes % 0.0 % % Myelocytes % 0.0 % % Promyelocytes % 0.0 % % Blast Cells % 0.0 % % Immature Gran # Not Reported Absolute Seg Neuts 20.39 10^3/uL H 10^3/uL (1.70-6.50) Absolute Band Neuts 0.45 10^3/uL 10^3/uL (0.00-0.70) Absolute Lymphocytes 0.91 10^3/uL L 10^3/uL (1.00-3.00) Absolute Monocytes 0.91 10^3/uL H 10^3/uL (0.30-0.80) Absolute Eosinophils 0.00 10^3/uL L 10^3/uL (0.03-0.40) Absolute Basophils 0.00 10^3/uL L 10^3/uL (0.02-0.10) Absolute Metamyelocyte 0.00 10^3/mL 10^3/mL (0.00-0.00) Absolute Myelocytes 0.00 10^3/mL 10^3/mL (0.00-0.00) Absolute Promyelocytes 0.00 10^3/uL 10^3/uL (0.00-0.00) Absolute Plasma Cells 0.00 10^3/uL 10^3/uL (0.00-0.00) Nucleated RBCs 0 /100 WBC /100 WBC (0-0) Absolute Blast Cells 0.00 10^3/uL 10^3/uL (0.00-0.00) Plasma Cells % 0.0 % % Platelet Estimate ADEQUATE (ADEQ) Polychromasia 1+ H Echinocytes 1+ H PT 18.4 SEC H SEC (12.0-15.0) INR 1.51 H (0.83-1.16) APTT 29.9 SEC SEC (23.0-38.0) POC Blood Source Patient Temperature POC VBG pH POC VBG pCO2 POC VBG pO2 POC VBG HCO3 POC VBG Total CO2 POC VBG Base Excess VBG Lactic Acid 9.7 mmol/L H mmol/L (0.7-2.1) POC Mix VBG O2 Sat POC FiO2 POC Sodium Sodium POC Potassium Potassium POC Chloride Chloride Carbon Dioxide Anion Gap POC BUN BUN Creatinine POC Creatinine Estimated GFR Glucose POC Glucose POC Lactic Acid Bethel Calcium Total Bilirubin Conjugated Bilirubin Unconjugated Bilirubin AST ALT Alkaline Phosphatase POC Troponin I Total Protein Albumin Lipase Medications Given: Discontinued Medications Amiodarone HCl (Amiodarone Hcl) 300 mg IV EDNOW ONE Stop: 05/27/18 14:39 Last Admin: 05/27/18 14:38 Dose: 300 mg Epinephrine HCl (Epinephrine) 1 mg IVP EDNOW ONE Stop: 05/27/18 14:36 Last Admin: 05/27/18 14:35 Dose: 1 mg Epinephrine HCl (Epinephrine) 1 mg IVP EDNOW ONE Stop: 05/27/18 14:40 Last Admin: 05/27/18 14:49 Dose: 1 mg Epinephrine HCl (Epinephrine) 1 mg IVP EDNOW ONE Stop: 05/27/18 14:47 Last Admin: 05/27/18 14:46 Dose: 1 mg Epinephrine HCl (Epinephrine) 1 mg IVP EDNOW ONE Stop: 05/27/18 14:50 Last Admin: 05/27/18 14:49 Dose: 1 mg Epinephrine HCl (Epinephrine) 1 mg IVP EDNOW ONE Stop: 05/27/18 14:54 Last Admin: 05/27/18 14:53 Dose: 1 mg Epinephrine HCl (Epinephrine) 1 mg IVP EDNOW ONE Stop: 05/27/18 15:01 Last Admin: 05/27/18 15:00 Dose: 1 mg Epinephrine HCl (Epinephrine) 1 mg IVP EDNOW ONE Stop: 05/27/18 15:11 Last Admin: 05/27/18 15:10 Dose: 1 mg Etomidate (Etomidate) 20 mg IVP EDNOW ONE Stop: 05/27/18 14:06 Last Admin: 05/27/18 14:08 Dose: 20 mg Sodium Chloride (Ns) 1,000 mls @ 0 mls/hr IV EDNOW ONE; Wide Open PRN Reason: Protocol Stop: 05/27/18 13:45 Last Admin: 05/27/18 13:46 Dose: 1,000 mls Sodium Chloride (Ns) 1,000 mls @ 0 mls/hr IV EDNOW ONE; Wide Open PRN Reason: Protocol Stop: 05/27/18 13:45 Last Admin: 05/27/18 13:49 Dose: 1,000 mls Norepinephrine 4 mg/ Sodium (Chloride) 504 mls @ 0 mls/hr IV CONT JON; Per Protocol PRN Reason: Protocol Stop: 11/23/18 14:29 Last Admin: 05/27/18 14:27 Dose: 504 mls Dopamine HCl/Dextrose (Dopamine 1600 Mcg/Ml (Premix)) 250 mls @ 0 mls/hr IV EDNOW ONE; Per Protocol PRN Reason: Protocol Stop: 05/27/18 14:24 Last Admin: 05/27/18 14:55 Dose: 250 mls Epinephrine HCl 1 mg/ Sodium (Chloride) 251 mls @ 0 mls/hr IV EDNOW ONE; Titrate PRN Reason: Protocol Stop: 05/27/18 15:00 Last Admin: 05/27/18 15:48 Dose: Not Given Sodium Bicarbonate (Sodium Bicarbonate) 50 meq IVP EDNOW ONE Stop: 05/27/18 14:44 Last Admin: 05/27/18 14:43 Dose: 50 meq Sodium Bicarbonate (Sodium Bicarbonate) 50 meq IVP EDNOW ONE Stop: 05/27/18 14:44 Last Admin: 05/27/18 14:48 Dose: 50 meq Succinylcholine Chloride (Quelicin) 100 mg IVP EDNOW ONE Stop: 05/27/18 14:06 Last Admin: 05/27/18 14:08 Dose: 100 mg Point of Care Test Results: Chemistry 05/27/18 05/27/18 05/27/18 15:05 13:50 13:49 POC Sodium 147 mEq/L H mEq/L 143 mEq/L mEq/L (135-145) (135-145) POC Potassium 3.8 mEq/L mEq/L 4.3 mEq/L mEq/L (3.3-5.0) (3.3-5.0) POC Chloride 110 mEq/L mEq/L 107 mEq/L mEq/L (97-110) (97-110) POC BUN 23 mg/dL mg/dL 19 mg/dL mg/dL (7-23) (7-23) POC Creatinine 1.5 mg/dL H mg/dL 1.2 mg/dL H mg/dL (0.6-1.0) (0.6-1.0) POC Glucose 246 mg/dL H mg/dL 290 mg/dL H mg/dL (70-100) (70-100) POC Troponin I 3.16 ng/mL H ng/mL (0.00-0.08) Blood Gas/Lactic Acid-Arterial 05/27/18 05/27/18 13:57 15:11 POC Blood Source VENOUS VENOUS POC FiO2 20.0000 Blood Gas/Lactic Acid-Venous 05/27/18 05/27/18 15:11 13:57 POC VBG pH 7.04 L 7.15 L (7.31-7.42) (7.31-7.42) POC VBG pCO2 48 mmHg H mmHg 37 mmHg L mmHg (40-44) (40-44) POC VBG pO2 35 mmHg mmHg 23 mmHg L mmHg (35-40) (35-40) POC VBG HCO3 13 mEq/L L mEq/L 13 mEq/L L mEq/L (22-26) (22-26) POC VBG Total CO2 15 mEq/L L mEq/L 14 mEq/L L mEq/L (21-27) (21-27) POC VBG Base Excess -18.0 mEq/L L mEq/L -16.0 mEq/L L mEq/L (-2.5-2.5) (-2.5-2.5) POC Mix VBG O2 Sat 46 % L % 28 % L % (65-75) (65-75) POC Lactic Acid [place] 12.6 mmol/L H mmol/L 9.3 mmol/L H mmol/L (0.7-2.1) (0.7-2.1) ISTAT H&H 05/27/18 05/27/18 15:05 13:50 POC Hgb 8.8 gm/dL L gm/dL 15.3 gm/dL gm/dL (12.6-16.3) (12.6-16.3) POC Hct 26 % L % 45 % % (38-47) (38-47) General Initial Vital Signs: Initial Vital Signs Temperature (C) 36.4 C 05/27/18 13:33 Heart Rate 90 05/27/18 13:33 Respiratory Rate 40 H 05/27/18 13:33 Blood Pressure 71/49 L 05/27/18 13:33 O2 Sat (%) 93 05/27/18 13:33 O2 Delivery Mode Non-Rebreather Mask O2 (L/minute) 15 Allergies/Adverse Reactions: No Known Allergies Allergy (Verified 05/27/18 13:33) Home Medications: Medication Instructions Recorded Tamoxifen Citrate 20 mg PO DAILY 05/10/18 Cholecalciferol Vit D3 [Vitamin D3 1,000 units PO DAILY 05/11/18 (*)] Herbals/Supplements -Info Only 1 ea PO DAILY 05/11/18 Acetaminophen [Tylenol 325mg (*)] 650 mg PO Q4HRS PRN tab 05/12/18 Ibuprofen [Motrin (*)] 600 mg PO Q6HRS PRN tab 05/12/18 Ibuprofen 600 mg PO Q8H PRN #90 tablet 05/17/18 LORazepam [Ativan] 1 mg PO DAILY PRN #30 tablet 05/17/18 morphINE IR [morphINE IR 15 mg (*)] 15 mg PO Q4HRS PRN #30 tab 05/17/18 morphINE SR [Ms Contin/Oramorph 15 15 mg PO BID #60 tab 05/17/18 mg (*)] Departure - Departure Disposition: Clinical Impression: Cardiac arrest, Metastatic breast cancer Referrals: Patient,NotPresent [Primary Care Provider] - As per Instructions Report Scribed for: Jacob Maria Report Scribed by: Christy Emmanuel Date of Report: 05/27/18 Time of Report: 15:48 Physician Review and Approval Statement: Portions of this note were transcribed by an ED scribe. I personally performed the history, physical exam, and medical decision making; and confirm the accuracy of the information in the transcribed note.
[2018-05-27] MEDS ORDERED: NS 1,000 ML IV ONE ×2 (13:44)
[2018-05-27 13:56] LABS: PLATELET COUNT 197 10^3/uL (150-400)
[2018-05-27 14:05] VITALS: BP 73/45
[2018-05-27] MEDS ORDERED: SUCCINYLCHOLINE CHLORIDE 200 MG/10 ML SYR IVP ONE ×2 (14:05→16:17)
[2018-05-27] MEDS ORDERED: ETOMIDATE 40 MG/20 ML INJ IVP ONE (14:05)
[2018-05-27 14:06] LABS: INR 1.51 (0.83-1.16); PROTIME(PATIENT) 18.4 SEC (12.0-15.0)
[2018-05-27] MEDS ORDERED: PROPOFOL/EMULSION 1,000 MG/100 ML BOTTLE IV ONE (14:19)
[2018-05-27] MEDS ORDERED: DOPamine/DEXTROSE 400 MG/250 ML BAG IV ONE (14:22)
[2018-05-27] MEDS ORDERED: NOREPINEPHRINE BITARTRATE 4 MG in NS 500 ML IV SCH (14:30)
[2018-05-27] MEDS ORDERED: EPINEPHrine 1 MG/10 ML SYR IVP ONE ×8 (14:35→16:01)
[2018-05-27] MEDS ORDERED: AMIODARONE HCL 150 MG/3 ML VIAL IV ONE (14:38)
[2018-05-27] MEDS ORDERED: SODIUM BICARBONATE 50 MEQ/50 ML SYR IVP ONE ×2 (14:43)
[2018-05-27] MEDS ORDERED: EPINEPHrine 1 MG in NS 250 ML IV ONE (14:59)
[2018-05-27] MEDS ORDERED: SODIUM BICARBONATE 50 MEQ/50 ML SYR ONE (16:01)
[2018-05-27] MEDS ORDERED: AMIODARONE HCL 150 MG/3 ML VIAL ONE (16:01)
[2018-05-27] MEDS ORDERED: ETOMIDATE 40 MG/20 ML INJ ONE (16:18)
--- NOTE | 2018-05-27 19:44 | ASMTCMCOM ---
CM Note CM Note Notes: Pt presented to the ED via EMS from home for AMS. Pt was recently discharged home 05/17/18 from [facility] w/[facility] and [facility]; pt had been admitted for recurrence of her breast cancer w/bone, brain, lung mets. Pt's MDPOA and sister Deena Saldivar ([phone]) and pt's longtime boyfriend Roel Monroe ([phone]) and pt's longtime friend, Essie, were present in the ED. Pt's conditioned worsened and required intubation. Pt then became pulseless and CPR was initiated. After extensive resuscitative efforts and discussion w/pt's family, it was decided to stop CPR. Pt in the ED. This CM provided emotional support to pt's family (including pt's mother, Velma, who later arrived from [facility]) throughout the ED visit and also assisted w/mortuary selection process. This CM called and notified [facility]. This CM will contact [facility] tomorrow. CM available for further assistance if needed. Date Signed: 05/27/2018 07:43 PM Electronically Signed By:Deena Matias RN
--- NOTE | 2018-05-28 11:12 | ASDISCHSUM ---
Discharge Information Plan Status: Medically Cleared to Leave: Discharge Date:05/27/2018 06:21 PM CM D/C Disposition: ADT D/C Disposition: Projected Discharge Date:05/27/2018 06:21 PM Transportation at D/C: Discharge Delay Reason: Follow-Up Date:05/27/2018 06:21 PM Discharge Slot: Final Diagnosis: Placement Information Patient Contact Information Contact Name:MARITA Relationship:Sister Address: Work Phone: City:[place] Alternate Phone: [facility] Code:MARY JO Email: Financial Information Financial Class:[facility] Primary Plan Number:[id number] Secondary Plan Desc: Secondary Plan Number: Assessment Information [facility] CM Progress Note CM Note CM Note Notes: Pt presented to the ED via EMS from home for AMS. Pt was recently discharged home 05/17/18 from [facility] w/[facility] and [facility]; pt had been admitted for recurrence of her breast cancer w/bone, brain, lung mets. Pt's MDPOA and sister Deena Saldivar ([phone]) and pt's longtime boyfriend Roel Monroe ([phone]) and pt's longtime friend, Essie, were present in the ED. Pt's conditioned worsened and required intubation. Pt then became pulseless and CPR was initiated. After extensive resuscitative efforts and discussion w/pt's family, it was decided to stop CPR. Pt in the ED. This CM provided emotional support to pt's family (including pt's mother, Velma, who later arrived from [facility]) throughout the ED visit and also assisted w/mortuary selection process. This CM called and notified [facility]. This CM will contact [facility] tomorrow. CM available for further assistance if needed. Date Signed: 05/27/2018 07:43 PM Electronically Signed By:Deena Matias RN Intervention Information Intervention Type:Emotional Support Date of Service:05/27/2018 07:04 PM Patient Type:Emergency Room Staff Member:COTY Matias Sharon Hours:1.5 Discipline:Manager Fleet Severity: Comment:Various emotional support, assistance and guidance provided. Offered twice to archibald ve a [employer] sample steamer come to the ED and provide additional support to family; pt's family respectfully declined both times. Intervention Type:Post Acute Communication Date of Service:05/27/2018 07:40 PM Patient Type:Emergency Room Staff Member:COTY Matias Sharon Hours:0.25 Discipline:Manager Fleet Severity: Comment:Contacted [facility] and notified them of pt's . Family requested that [facility] not reach out to them. Intervention Type:End of Life Date of Service:05/27/2018 07:00 PM Patient Type:Emergency Room Staff Member:COTY Matias Sharon Hours:1 Discipline:Manager Fleet Severity: Comment:Various end of life assistance (review ing pt's living will, last testament, MDPOA paperwork w/family and then assisting w/ mortuary selection process, etc.)
--- NOTE | 2018-05-29 10:34 | CPEKG ---
Test Reason : OPEN Blood Pressure : / mmHG Vent. Rate : 085 BPM Atrial Rate : 085 BPM P-R Int : 124 ms QRS Dur : 092 ms QT Int : 394 ms P-R-T Axes : 082 103 015 degrees QTc Int : 469 ms Sinus rhythm Right axis deviation Repol abnrm, prob ischemia, anterolateral lds Confirmed by Jacob Maria ([id number] on 05/29/2018 10:34:08 AM Referred By: Confirmed By:Jacob Maria
--- NOTE | 2018-05-29 10:34 | CPEKG ---
Test Reason : OPEN Blood Pressure : / mmHG Vent. Rate : 070 BPM Atrial Rate : 070 BPM P-R Int : 228 ms QRS Dur : 108 ms QT Int : 388 ms P-R-T Axes : 100 109 002 degrees QTc Int : 419 ms Right and left arm electrode reversal, interpretation assumes no reversal Sinus rhythm Prolonged HI interval Right axis deviation Borderline ST depression, diffuse leads Confirmed by Jacob Maria ([id number] on 05/29/2018 10:34:15 AM Referred By: Confirmed By:Jacob [email or web address]
== END 2018-05-27 18:21 | disposition expired ==
LOC: EDUNIT#
PROC: 0BH18EZ Insertion of Endotracheal Airway into Trachea, Via Natural or Artificial Opening Endoscopic (ICD-10-PCS; principal; 2018-05-27)
DX: I46.9 Cardiac arrest, cause unspecified (principal); C79.51 Secondary malignant neoplasm of bone; Z85.3 Personal history of malignant neoplasm of breast; E86.9 Volume depletion, unspecified
CPT/HCPCS: 82435-PO; 82565-PO; 82947-PO; 83605-PO; 84132-PO; 84295-PO; 84484-PO; 84520-PO; 85014-PO; 96365; 96366; J0171; J0282; J0330; J1265; J2704